=== PATIENT | female | born 1990 | race Caucasian/White ===

== ENCOUNTER 2021-09-20 14:32 | Emergency (ER) | payer MEDICARE, MEDICAID, SELFPAY ==
[2021-09-20 14:41] VITALS: BP 138/83; PULSE 109; RESP 16; TEMP 36.3; O2SAT 98
--- NOTE | 2021-09-20 15:13 | ED.URI ---
HPI - URI/Sore Throat General Chief Complaint: Upper Respiratory Infection Stated Complaint: Sore Throat Time Seen by Provider: 09/20/21 15:13 Source: patient and RN notes reviewed Mode of arrival: ambulatory Limitations: no limitations History of Present Illness HPI Narrative: 31-year-old female presented for complaint of sore throat worsening over the past few days. States is causing her to have a hoarse voice. She states her son is positive for strep throat. She denies nausea, headache, fever or chills. Has not taken anything for symptoms. MD elicited complaint: cough Related Data Home Medications Medication Instructions Recorded Confirmed sertraline 100 mg PO DAILY 09/20/21 09/20/21 Allergies Allergy/AdvReac Type Severity Reaction Status Date / Time No Known Allergies Allergy Unverified 06/16/13 11:21 Review of Systems Review of Systems: CONSTITUTIONAL: Denies malaise, chills, sweats, fever EYES: Denies visual changes, redness, or discharge ENT: Reports sore throat denies rhinorrhea, congestion, sinus pain, otalgia, CARDIOVASCULAR: Denies chest pain, palpitations, edema RESPIRATORY: Denies cough, post nasal drainage, dyspnea GASTROINTESTINAL: Denies abdominal pain, nausea, vomiting, diarrhea SKIN: Denies rash or itching MUSCULOSKELETAL: Denies myalgia NEUROLOGIC: Denies headache Exam Narrative: GENERAL: Ill-appearing, nontoxic HEAD: Normocephalic EYES: PERRLA, conjunctivae clear ENT: Mucous membranes moist. TM pearly dewey with dull light reflex bilaterally, bilateral canals erythematous; no tragal tenderness. Oropharynx erythematous with exudate, tonsils 2+, no drooling, no hoarseness, no trismus, uvula midline. No tripod positioning, muffled voice, soft palate or pharyngeal wall bulging NECK: Supple. No lymphadenopathy CHEST: Clear to auscultation, breath sounds equal. No wheezing, rhonchi, rales, or stridor. No respiratory distress, speaks in full sentences. HEART: Regular rate and rhythm. No murmur heard. SKIN: Warm, dry, no rash. NEURO: Alert and oriented x3. PSYCH: Normal mood and affect Course Course Emergency Course: Patient is aware of diagnosis, understands and agrees to treatment plan. Anticipatory guidance given. Patient agrees to follow-up as directed and is aware of reasons to seek care at the emergency department. Portions of this record may have been created with voice recognition software Level of Care: Express Care Visit Vital Signs Vital signs: Vital Signs Temperature 97.3 F L 09/20/21 14:41 Pulse Rate 109 H 09/20/21 14:41 Respiratory Rate 16 09/20/21 14:41 Blood Pressure 138/83 09/20/21 14:41 Pulse Oximetry 98 09/20/21 14:41 Temperature 97.3 F L 09/20/21 14:41 Pulse Rate 109 H 09/20/21 14:41 Respiratory Rate 16 09/20/21 14:41 Blood Pressure 138/83 09/20/21 14:41 Pulse Oximetry 98 09/20/21 14:41 reviewed MDM - URI/Sore Throat Differential Diagnosis Differential diagnosis: Likely upper respiratory infection, sinusitis and viral infection Lab Data Attestation: I reviewed the patient's lab results. Lab results narrative: Strep positive Discharge Plan Discharge Clinical Impression: Strep pharyngitis Patient Disposition: Home, Self-Care Condition: Stable Instructions: Antibiotic Form, Strep Throat (ED) Additional Instructions: -Take the medication as prescribed. Throw away the toothbrush after 24hours of antibiotic. -Eat and drink things that are easy to swallow, like soft foods, cool liquids, tea with honey, or popsicles . -Salt water gargles and/or may use topical anesthetic ( Chloraseptic spray) or lozenges to relieve dryness or throat pain -Take Tylenol and ibuprofen as needed for pain and fever as directed. -Frequent hand washing or hand sergeant at arms is one of the best ways to prevent spread of infection. -Follow up with primary care provider in 2-3 days if condition is not improving; or seek ER visit if you have trouble br
== END 2021-09-20 15:25 | disposition home or self-care (01) ==
PROVIDERS: Emergency Provider Nurse Practitioner Family; PCP Nurse Practitioner Family
DX: J02.0 Streptococcal pharyngitis (principal)
CPT/HCPCS: 87880; 99203; G0463

== ENCOUNTER 2022-08-23 09:39 | Emergency (ER) | payer MEDICARE, MEDICAID, SELFPAY ==
[2022-08-23 09:47] VITALS: BP 143/86; PULSE 112; RESP 18; TEMP 35.9; O2SAT 99
--- NOTE | 2022-08-23 10:12 | ED.URI ---
HPI - URI/Sore Throat General Chief Complaint: Upper Respiratory Infection Stated Complaint: Sore Throat Time Seen by Provider: 08/23/22 10:10 Source: patient, RN notes reviewed and old records reviewed Mode of arrival: ambulatory Limitations: no limitations History of Present Illness HPI Narrative: 31-year-old female who presents to [facility] with complaints of sore throat for the past 3 days and some ear pressure. Patient states that she has some cough and sinus congestion 'cold' symptoms she reports for one week. Patient reports no fevers, chills or sweats, has taken some Tylenol for her discomfort which she rates as 6/10 sharp to her throat.Patient reports that son was diagnosed recently with strep throat. MD elicited complaint: cough, sore throat, rhinorrhea, nasal congestion and other (right ear pain) Onset (ago): day(s) (3 days sore throat, 1 week cold symptoms) Pain scale (0-10): 6 Able to tolerate fluids by mouth: Yes Treatments prior to arrival: acetaminophen Related Data Home Medications Medication Instructions Recorded Confirmed pregabalin 150 mg capsule 150 mg PO DAILY 09/20/21 08/23/22 sertraline 100 mg tablet 100 mg PO DAILY 09/20/21 08/23/22 atorvastatin 20 mg tablet 20 mg PO DAILY 08/23/22 08/23/22 insulin lispro 100 unit/mL 1 sliding scale dose subcut TID 08/23/22 08/23/22 subcutaneous pen (Humalog KwikPen (U-100) Insulin) Allergies Allergy/AdvReac Type Severity Reaction Status Date / Time No Known Allergies Allergy Verified 08/23/22 10:06 Review of Systems Review of Systems: CONSTITUTIONAL: Denies malaise, chills, sweats, or fever. EYES: Denies visual changes, redness, or discharge. ENT: Reports rhinorrhea, congestion,no sinus pain,right otalgia and sore throat. CARDIOVASCULAR: Denies chest pain, palpitations, or edema. RESPIRATORY: Reports cough.? Denies dyspnea. GASTROINTESTINAL: Denies abdominal pain, nausea, vomiting, diarrhea SKIN: Denies rash or itching. MUSCULOSKELETAL: Denies myalgia. NEUROLOGIC: Denies headache. All systems reviewed & are unremarkable except as noted in HPI and below PMFSH Comments At time of signature, agree with nursing past medical, surgical, social and family history. There is no relevant family history pertinent to the presenting complaint Exam Narrative: GENERAL: Well-appearing, well-nourished, and in no acute distress. HEAD: Normocephalic EYES: PERRLA, conjunctivae clear ENT: Nares clear, turbinates edematous and erythematous, clear discharge. Mucous membranes moist. TM pearly dewey with dull light reflex bilaterally; no tragal tenderness. Oropharynx erythematous without lesions. Tonsils red enlarged and without exudate, no drooling, no hoarseness, no trismus, uvula midline.post nasal drainage NECK: Supple. No lymphadenopathy CHEST: Clear to auscultation, breath sounds equal. No wheezing, rhonchi, rales, or stridor. No respiratory distress, speaks in full sentences.SAO2 99% on room air HEART: Regular rate and rhythm. No murmur heard. SKIN: Warm, dry, no rash. NEURO: Alert and oriented x3. PSYCH: Normal mood and affect Course Course Emergency Course: Patient is aware of diagnosis, understands and agrees to treatment plan.? Anticipatory guidance given.? Patient agrees to follow-up as directed and is aware of reasons to seek care at the emergency department. Portions of this record may have been created with voice recognition software Level of Care: Express Care Visit Vital Signs Vital signs: Vital Signs Temperature 35.9 C L 08/23/22 09:47 Pulse Rate 112 H 08/23/22 09:47 Respiratory Rate 18 08/23/22 09:47 Blood Pressure 143/86 H 08/23/22 09:47 Pulse Oximetry 99 08/23/22 09:47 Oxygen Delivery Room Air 08/23/22 09:47 Temperature 35.9 C L 08/23/22 09:47 Pulse Rate 112 H 08/23/22 09:47 Respiratory Rate 18 08/23/22 09:47 Blood Pressure 143/86 H 08/23/22 09:47 Pulse Oximetry 99 08/23/22 09:
== END 2022-08-23 10:28 | disposition home or self-care (01) ==
PROVIDERS: Emergency Provider Registered Nurse; PCP Nurse Practitioner Family
DX: J02.0 Streptococcal pharyngitis (principal)
CPT/HCPCS: 87880; 99213; G0463

== ENCOUNTER 2023-04-16 12:52 | Emergency (ER) | payer MEDICARE, MEDICAID, SELFPAY ==
[2023-04-16 12:58] VITALS: BP 125/82; PULSE 100; RESP 18; TEMP 36.3; O2SAT 100
--- NOTE | 2023-04-16 13:04 | ED.URI ---
HPI - URI/Sore Throat General Chief Complaint: Upper Respiratory Infection Stated Complaint: Right Earache, Sore Throat Source: patient and RN notes reviewed History of Present Illness HPI Narrative: 32 yo F presents to urgent care with complaints of a sore throat and right ear pain x 2 days. Pt states she had a low grade fever yesterday. Denies any chest pain, SOB, N/V/D, or congestion. Related Data Home Medications Medication Instructions Recorded Confirmed pregabalin 150 mg capsule 150 mg PO DAILY 09/20/21 04/16/23 atorvastatin 20 mg tablet 20 mg PO DAILY 08/23/22 04/16/23 insulin lispro 100 unit/mL 1 sliding scale dose subcut TID 08/23/22 04/16/23 subcutaneous pen (Humalog KwikPen (U-100) Insulin) Allergies Allergy/AdvReac Type Severity Reaction Status Date / Time cyclobenzaprine Allergy Unknown Verified 04/16/23 13:14 [From Flexeril] Review of Systems Review of Systems: CONSTITUTIONAL: Denies fever, chills, or sweats. EYES: Denies visual changes, redness, or discharge. CARDIOVASCULAR: Denies chest pain, palpitations, or edema. RESPIRATORY: Denies cough or dyspnea. GASTROINTESTINAL: Denies abdominal pain, nausea, vomiting, or diarrhea. GENITOURINARY: Denies dysuria or hematuria. SKIN: Denies rash or itching. MUSCULOSKELETAL: Denies back pain, joint pain, or myalgia. NEUROLOGIC: Denies headache, numbness, or weakness. Pertinent positives per HPI. PMFSH Comments At the time of my signature, I reviewed and agree with the nursing past medical, surgical, social, and family history. There is no relevant family history pertinent to the patient complaint. Exam Narrative: GENERAL: This is a well-nourished, well-developed patient, in no apparent distress. HEAD: normocephalic, atraumatic. EYES: Sclera clear/white. Vision is grossly intact. EARS: External ears normal, auditory canals clear and without drainage, TMs normal without perforation. Hearing grossly intact. NOSE: External nose normal with no obvious nasal discharge, nares without redness, no rhinorrhea. THROAT: Mucous membranes moist, posterior pharynx erythremic. no exudate. uvula midline. NECK: Neck supple, non-tender without lymphadenopathy, masses or thyromegaly. CARDIOVASCULAR: Regular rate and rhythm without murmurs, gallops, or rubs. RESPIRATORY: Clear to auscultation. Breath sounds equal bilaterally. No wheezes, rales, or rhonchi. NEURO: awake, alert, and oriented to person, place and time. There were no obvious focal neurologic abnormalities. Course Course Level of Care: Express Care Visit Vital Signs Vital signs: Vital Signs Temperature 97.3 F L 04/16/23 12:58 Pulse Rate 100 04/16/23 12:58 Respiratory Rate 18 04/16/23 12:58 Blood Pressure 125/82 04/16/23 12:58 Pulse Oximetry 100 04/16/23 12:58 Oxygen Delivery Room Air 04/16/23 12:58 Temperature 97.3 F L 04/16/23 12:58 Pulse Rate 100 04/16/23 12:58 Respiratory Rate 18 04/16/23 12:58 Blood Pressure 125/82 04/16/23 12:58 Pulse Oximetry 100 04/16/23 12:58 Oxygen Delivery Room Air 04/16/23 12:58 Reviewed MDM - URI/Sore Throat MDM Narrative Medical decision making narrative: Rapid strep is negative in the office; however we will send to the lab for confirmation; there is a small percentage chance that it can come back positive; if it is, we will call you in 2-3days; and your prescription will be call in to your pharmacy. However, there is NO indication for antibiotic at this time. -Increase your fluids and Vitamin C. -Oral rinses such as: Salt water gargles and/or may use topical anesthetic (eg. Chloraseptic spray) or lozenges to relieve dryness or throat pain. -Take tylenol and ibuprofen as needed for pain and fever as directed. -Frequent hand washing or hand puttier is one of the best ways to prevent spread of infection. -Follow up with primary care provider in 2-3 days if condition is not improving or seek ER visit if you
== END 2023-04-16 13:25 | disposition home or self-care (01) ==
PROVIDERS: Emergency Provider Nurse Practitioner Family; PCP Nurse Practitioner Family
DX: J02.9 Acute pharyngitis, unspecified (principal); E11.40 Type 2 diabetes mellitus with diabetic neuropathy, unspecified; Z79.4 Long term (current) use of insulin
CPT/HCPCS: 87081; 87880; 99213; G0463

== ENCOUNTER 2023-04-22 17:18 | Emergency (ER) | payer MEDICARE, MEDICAID, SELFPAY ==
[2023-04-22 17:37] VITALS: BP 138/93; PULSE 112; RESP 18; TEMP 36.2; O2SAT 97
--- NOTE | 2023-04-22 18:14 | ED.URI ---
HPI - URI/Sore Throat General Chief Complaint: Upper Respiratory Infection Stated Complaint: Headache/Sore Throat/Fever Source: patient, family and RN notes reviewed History of Present Illness HPI Narrative: 32 yo F presents to urgent care with complaints of worsening congestion, ear fullness, and sore throat x 8 days. Pt reports tinnitus in her ears, dizziness with walking and position changes, and states she has vomited a couple times when she got dizzy. Pt also states she first noticed a fever today. Denies any diarrhea, chest pain, SOB, or abdominal pain. Denies any falls. Pt has been taking ibuprofen and Tylenol at home with no relief. Related Data Home Medications Medication Instructions Recorded Confirmed pregabalin 150 mg capsule 150 mg PO DAILY 09/20/21 04/16/23 atorvastatin 20 mg tablet 20 mg PO DAILY 08/23/22 04/16/23 insulin lispro 100 unit/mL 1 sliding scale dose subcut TID 08/23/22 04/16/23 subcutaneous pen (Humalog KwikPen (U-100) Insulin) Allergies Allergy/AdvReac Type Severity Reaction Status Date / Time cyclobenzaprine Allergy Unknown Verified 04/16/23 13:14 [From Flexeril] Review of Systems Review of Systems: Pertinent positives and pertinent negatives per HPI. [facility] Comments At the time of my signature, I reviewed and agree with the nursing past medical, surgical, social, and family history. There is no relevant family history pertinent to the patient complaint. Exam Narrative: GENERAL: This is a well-nourished, well-developed patient, in no apparent distress. HEAD: normocephalic, atraumatic. EYES: Sclera clear/white. Vision is grossly intact. EARS: External ears normal, auditory canals clear and without drainage, TMs noted to have clear fluid behind the TMs,without perforation. Hearing grossly intact. NOSE: External nose normal with no obvious nasal discharge, nares without redness, no rhinorrhea. THROAT: Mucous membranes moist, posterior pharynx clear. NECK: Neck supple, non-tender without lymphadenopathy, masses or thyromegaly. CARDIOVASCULAR: Regular rate and rhythm without murmurs, gallops, or rubs. RESPIRATORY: Clear to auscultation. Breath sounds equal bilaterally. No wheezes, rales, or rhonchi. SKIN: warm, intact with no suspicious lesions or rash, good texture and turgor. NEURO: awake, alert, and oriented to person, place and time. There were no obvious focal neurologic abnormalities. Course Course Level of Care: Express Care Visit Vital Signs Vital signs: Vital Signs Temperature 97.1 F L 04/22/23 17:37 Pulse Rate 112 H 04/22/23 17:37 Respiratory Rate 18 04/22/23 17:37 Blood Pressure 138/93 H 04/22/23 17:37 Pulse Oximetry 97 04/22/23 17:37 Oxygen Delivery Room Air 04/22/23 17:37 Temperature 97.1 F L 04/22/23 17:37 Pulse Rate 112 H 04/22/23 17:37 Respiratory Rate 18 04/22/23 17:37 Blood Pressure 138/93 H 04/22/23 17:37 Pulse Oximetry 97 04/22/23 17:37 Oxygen Delivery Room Air 04/22/23 17:37 Reviewed MDM - URI/Sore Throat MDM Narrative Medical decision making narrative: Go to the ER for any new or worsening symptoms. Avoid smoking/second-hand smoke. Continue to take Tylenol or Motrin for pain. Increase your Vitamin C intake. Use a humidifier or vaporizer at night. Take a probiotic daily while taking the antibiotic Take Medications as prescribed. Drink plenty of water. 8-10 glasses per day. Use flonase 2 times per day for 5 days then as needed Take mucinex 2 times per day and be sure to take with 8oz of water. Follow up with Primary provider if not getting better. Differential Diagnosis Differential diagnosis: Likely upper respiratory infection, otitis media, sinusitis, viral infection, bronchitis, influenza, pharyngitis and other (vertigo) Lab Data Labs: Strep Screen Presumptive Negative *(Reference Range: Negative)* Critical Care Time Cr
== END 2023-04-22 18:20 | disposition home or self-care (01) ==
PROVIDERS: Emergency Provider Nurse Practitioner Family; PCP Nurse Practitioner Family
DX: R42 Dizziness and giddiness (principal); J32.9 Chronic sinusitis, unspecified; E11.9 Type 2 diabetes mellitus without complications; Z79.4 Long term (current) use of insulin; G62.9 Polyneuropathy, unspecified
CPT/HCPCS: 87081; 87880; 99213; G0463

== ENCOUNTER 2023-08-09 10:45 | Emergency (ER) | payer MEDICARE, MEDICAID, SELFPAY ==
[2023-08-09 10:57] VITALS: BP 128/78; PULSE 110; RESP 16; TEMP 36.7; O2SAT 98
--- NOTE | 2023-08-09 11:33 | ED.EAR ---
HPI - Ear Problem General Chief complaint: Ear Stated complaint: Left ear pain Time Seen by Provider: 08/09/23 11:24 Source: patient and RN notes reviewed Mode of arrival: ambulatory Limitations: no limitations History of Present Illness HPI Narrative: Patient presents today with left ear pain x1 week. Denies any drainage. She reports fever up to 101.7 yesterday. Denies any additional URI symptoms to include congestion, rhinorrhea, cough, sore throat. Currently rates her pain 6/10 and has been taking Tylenol with mild relief. Related Data Home Medications Medication Instructions Recorded Confirmed pregabalin 150 mg capsule 150 mg PO DAILY 09/20/21 04/22/23 atorvastatin 20 mg tablet 20 mg PO DAILY 08/23/22 04/22/23 insulin lispro 100 unit/mL 1 sliding scale dose subcut TID 08/23/22 04/22/23 subcutaneous pen (Humalog KwikPen (U-100) Insulin) duloxetine 30 mg capsule,delayed mg PO 08/09/23 release Allergies Allergy/AdvReac Type Severity Reaction Status Date / Time cyclobenzaprine Allergy Unknown Verified 04/16/23 13:14 [From Flexeril] Review of Systems Review of Systems: CONSTITUTIONAL: Denies body aches, chills, or sweats.+ fever EYES: Denies visual changes, redness, or discharge. ENT: Denies rhinorrhea, congestion, sore throat. + left ear pain CARDIOVASCULAR: Denies chest pain, palpitations, or edema. RESPIRATORY: Denies cough or dyspnea. GASTROINTESTINAL: Denies abdominal pain, nausea, vomiting, or diarrhea. GENITOURINARY: Denies dysuria or hematuria. SKIN: Denies rash, itching, or wounds. MUSCULOSKELETAL: Denies back pain, joint pain, or myalgia. NEUROLOGIC: Denies headache, numbness, tingling, or weakness. PSYCH: Denies depression or anxiety. PMFSH Comments At time of signature, I have reviewed and agree with nursing past medical, surgical, social and family history unless otherwise noted. Please see nursing chart for further information. There is no relevant family history pertinent to the presenting complaint Exam Narrative: GENERAL: Well-appearing, well-nourished, and in no acute distress. HEAD: Normocephalic, atraumatic. EYES: EOMI. No redness or drainage. Conjunctivae normal. ENT: Mucous membranes pink and moist. Nares clear. No rhinorrhea. Right TM and canal normal. Left ear:+ tragal tenderness. No movement tenderness. Ear canal is erythematous and mildly edematous. The TM is injected. No tenderness to the mastoid process. Throat normal. Uvula midline. NECK: Normal AROM. Supple. No lymphadenopathy. CHEST: No respiratory distress. EXTREMITIES: Normal range of motion. No edema. SKIN: Warm, dry. Capillary refill normal. Normal skin turgor. NEURO: No focal deficits. Alert and oriented x3. Gait steady. PSYCH: Normal affect. No signs of depression or anxiety. Course Course Level of Care: Express Care Visit Vital Signs Vital signs: Vital Signs Temperature 98.1 F 08/09/23 10:57 Pulse Rate 110 H 08/09/23 10:57 Respiratory Rate 16 08/09/23 10:57 Blood Pressure 128/78 08/09/23 10:57 Pulse Oximetry 98 08/09/23 10:57 Oxygen Delivery Room Air 08/09/23 10:57 Temperature 98.1 F 08/09/23 10:57 Pulse Rate 110 H 08/09/23 10:57 Respiratory Rate 16 08/09/23 10:57 Blood Pressure 128/78 08/09/23 10:57 Pulse Oximetry 98 08/09/23 10:57 Oxygen Delivery Room Air 08/09/23 10:57 Reviewed Medical Decision Making MDM Narrative Medical decision making narrative: Patient will be treated with both Augmentin and Ciprodex for presumed otitis externa and otitis media. Anticipatory guidance given. Differential Diagnosis Differential Diagnosis: Otitis media, otitis externa, ruptured TM, serous otitis, eustachian tube dysfunction, cerumen impaction Vital Signs Vital Signs: Vital Signs Temperature 98.1 F 08/09/23 10:57 Pulse Rate 110 H 08/09/23 10:57 Respiratory Rate 16 08/09/23 10:57 Blood Pressure 128/78 08/09/23 1
== END 2023-08-09 11:43 | disposition home or self-care (01) ==
PROVIDERS: Emergency Provider Nurse Practitioner; PCP Nurse Practitioner Family
DX: H66.92 Otitis media, unspecified, left ear (principal); H60.502 Unspecified acute noninfective otitis externa, left ear; E11.9 Type 2 diabetes mellitus without complications
CPT/HCPCS: 99213; G0463

== ENCOUNTER 2025-06-01 11:02 | Emergency (ER) | payer MEDICARE, MEDICAID, SELFPAY ==
--- OUTSIDE RECORDS SUMMARY | 2025-06-01 11:04 | XMS_ITS | Clinical Summary ---
Author Organization [facility] Address [address], [place] [address] Phone Care Team Providers Care Application Project Leader Name Role Phone Devon, Kalyn TOVAR CNP Primary Care Provider [phone] Arvind Ovalle MD Unavailable [phone] Allergies Active Allergy Reactions Criticality Noted Date Comments Cyclobenzaprine Anaphylaxis 06/21/2015 Tongue swelling Medications insulin lispro (HumaLOG) 100 UNIT/ML Solution by Subcutaneous route 3 times daily (after meals). Use as directed Active Cholecalcifero l (VITAMIN D PO) Take by mouth. Activ e Ibuprofen 200 MG Capsule Take by mouth. Acti ve Misc. Devices Misc Supply: AFO Orthotics Expected length of need: 99 Instructions: Wear when ambulating to reduce risk of falls. 1 Each 9 Active Additional Information Patient not taking.Reported on 05/03/2025 albuterol 108 (90 Base) MCG/ACT Aerosol Solution INHALE 2 PUFFS BY MOUTH EVERY 4 HOURS NEEDED 1 Active Glucagon, rDNA, (Glucagon Emergency) 1 MG Kit 1 Active DULoxetine (CYMBALTA) [address] Particles Take 30 mg by mouth daily. Active FLUTICASONE PROPIONATE, NASAL, NA 50 mcg by Nasal route daily. 1 spray daily Active Norethindrone, Contraceptive, (Meleya) 0.35 MG TabletIndicati ons:Contracept yessenia Therapy Take 1 Tablet by mouth daily. Indications: Control Treatment Active pregabalin (LYRICA) 150 MG CapsuleIndicat ions:Lumbosacr al plexopathy Take 1 Capsule by mouth 2 times daily. 180 Capsule Active pregabalin (LYRICA) 150 MG CapsuleIndicat ions:Lumbosacr al plexopathy Take 1 Capsule by mouth 2 times daily. 180 Capsule 2 5 025 Discontin ued(Reord er) Active Problems Problem Noted Date Diagnosed Date Morbid obesity 03/28/2025 Diabetic ketoacidosis withou t coma associated with type 1 diabetes mellitus 03/27/2025 Acute kidney injury 03/27/2025 Dehydration 03/27/2025 Hypomagnesemia 03/27/2025 Diabetic polyneuropathy asso ciated with type 1 diabetes mellitus 03/27/2025 Diabetic lumbosacral plexopathy 01/16/2025 Encounters Date Type Department Care Team Description 05/03/2025 Refill [facility] [address] [place] [address] Arvind Ovalle MD Medication Refill 03/27/2025 5:06 PM CDT - 03/28/2025 4:45 PM CDT Hospital Encounter [facility] Intensive Care [address] [place] [address] Nato Ceron MD Dianati, Behfar, MD Diabetic ketoacidosis without coma associated with type 1 diabetes mellitus Discharge Disposition: Discharged to home or Selfcare 03/27/2025 Travel from Last 3 Months Family History Medical History Relation Name Comments Hypertension Mother Relation Name Status Comments Father Alive Mother Alive Social History Tobacco Use Types Packs/Day Years Used Date Smoking Tobacco: Never Smokeless Tobacco: Never Tobacco Cessation:Counseling Given: Not Answered Alcohol Use Standard Drinks/Week Comments Yes 0 (1 standard drink = 0.6 oz pur e alcohol) Social Connection and Isolation Panel Answer Date Recorded In a typical week, how many times do you talk on the phone with family, friends, or neighbors? More than three times a week 03/27/2025 How often do you get togethe r with friends or relatives? More than three times a week 03/27/2025 How often do you attend chur ch or sikhism services? Never 03/27/2025 Do you belong to any clubs o r organizations such as pentecostal groups, unions, fraternal or athletic groups, or school groups? No 03/27/2025 How often do you attend meet ings of the clubs or organizations you belong to? Never 03/27/2025 Are you , , di vorced, , never , or living with a partner? Never 03/27/2025 AUDIT-C Answer Date Recorded Q1: How often do you have a drink containing alc ohol? Monthly or less 03/27/2025 Q2: How many drinks containi ng alcohol do you have on a typical day when you are drinking? 1 or 2 03/27/2025 Q3: How often do you have si x or more drinks on one occasion? Never 03/27/2025 Overall Financial Resource Strain (CARDIA) Answe r Date Recorded How hard is it for you to pa y for the very basics like food, housing, medical care, and heating? Not hard at all 03/27/2025 [facility] - Occupational Stress Questionnaire Answer Date Recorded Do you feel stress - tense, restless, nervous, or anxious, or unable to sleep at night because your mind is troubled all the time - these days? Rather much 03/27/2025 Exercise Vital Sign Answer Date Recorde d On average, how many days pe r week do you engage in moderate to strenuous exercise (like a brisk walk)? 3 days 03/27/2025 On average, how many minutes do you engage in exercise at this level? 30 min 03/27/2025 Hunger Vital Sign Answer Date Recorded Within the past 12 months, y ou worried that your food would run out before you got the money to buy more. Never true 03/27/20 25 Within the past 12 months, t he food you bought just didn't last and you didn't have money to get more. Never true 03/27/2025 PRAPARE - Transportation Answer Date Re corded In the past 12 months, has l ack of transportation kept you from medical appointments or from getting medications? No 03/08 In the past 12 months, has l ack of transportation kept you from meetings, work, or from getting things needed for daily living? No 03/27/2025 Housing Stability Vital Sign Answer Olaf e Recorded In the last 12 months, was t here a time when you were not able to pay the mortgage or rent on time? No 03/27/2025 In the past 12 months, how m any times have you moved where you were living? 0 03/27/2025 At any time in the past 12 m [facility], were you homeless or living in a long term (including now)? No 03/27/2025 [facility] Utilities Answer Date Recorded In the past 12 months has th e electric, gas, oil, or water company threatened to shut off services in your home? No 03/27/2025 Comments No Sex and Gender Information Value Date Recorded Sex Assigned at Not on file Legal Sex Female 11:05 PM CDT Gender Identity Not on file Sexual Orientation Not on file Last Filed Vital Signs Vital Sign Reading Time Taken Comments Blood Pressure 147/73 03/28/2025 4:00 PM CDT Pulse 113 03/28/2025 4:00 PM CDT Temperature 36.7 C (98 F) 03/28/2025 3:00 AM CDT Respiratory Rate 24 03/28/2025 4:00 PM CDT Oxygen Saturation 97% 03/28/2025 4:00 PM CDT Inhaled Oxygen Concentration - - Weight 142 kg (313 lb) 03/27/2025 5:12 PM CDT Height 165.1 cm (5' 5) 03/27/2025 5:12 PM CDT Body Mass Index 52.09 03/27/2025 5:12 PM CDT Plan of Treatment Upcoming Encounters Date Type Department Care Team (Late st Contact Info) Description 07/23/2025 9:30 AM CUSTOMER EXPERIENCE ANALYST Office Visit [facility] Neurology [facility] [address] [place] [id number] Arvind Ovalle MD [address] [place] [address] Health Maintenance Due Date Last Done Comments Diabetes: Eye Exam 1992 Diabetes: Foot Exam 1992 Hepatitis C Virus (HCV) Screening 1992 Varicella Immunization (1 of 2 - 13+ 2-dose series) 2005 Pneumococcal Immunization Combined (1 of 2 - PCV) 09/11/2011 Pap Smear 2013 Medicare Initial AWV G0438 01/28/2022 Cervical Cancer Screening (CCS) 2022 HPV/Cotest 2022 Influenza Immunization (#1) 2025 SARS-COV-2 Immunization ( season) 2025 Diabetes: Hemoglobin A1c 09/25/2025 025, 10/11/2024, 03/17/2024, Additional history exists Diabetes: Nephropathy Screening 03/27/2026 03/27/2025, 10/11/2017 Hepatitis B Immunization Completed 994, 1992, 1992 DTaP/Tdap/Td Immunization Discontinued 2023, 11/26/2022, 08/16/2018, Additional history exists TdaP Immunization Completed 02/21/2024, , 08/16/2018, Additional history exists Respiratory Syncytial Virus (RSV) Immunization (Adult) Completed 03/21/2024 Human Papillomavirus (HPV) Immunization (No Doses Required) Completed Meningococcal Immunization (ACWY) Aged Out No longer eligible based on patient's age to complete this topic Rotavirus Immunization Aged Out No lo nger eligible based on patient's age to complete this topic Procedures Procedure Name Priority Date/Time Associated Diagnosis Comments PRESTON SCREEN MULTIPLEX W/REFLEX DENIA Routine 03/28/2025 3:40 PM CDT POCT GLUCOSE Routine 03/28/2025 3:33 PM CDT BASIC METABOLIC PANEL W/ CALCIUM TOTAL Timed 03/28/2025 1:10 PM CDT POCT GLUCOSE Routine 03/28/2025 12:20 PM CDT POCT GLUCOSE Routine 03/28/2025 10:20 AM CDT THYROID STIMULATING HORMONE (TSH) Routine 03/28/2025 8:45 AM CDT BASIC METABOLIC PANEL W/ CALCIUM TOTAL Timed 03/28/2025 8:45 AM CDT POCT GLUCOSE Routine 03/28/2025 8:43 AM CDT POCT GLUCOSE Routine 03/28/2025 7:18 AM CDT POCT GLUCOSE Routine 03/28/2025 5:58 AM CDT CBC WITH AUTO DIFFERENTIAL STAT 03/28/2025 5:18 AM CDT BASIC METABOLIC PANEL W/ CALCIUM TOTAL Timed 03/28/2025 5:18 AM CDT COMPLETE BLOOD COUNT (CBC) WITH DIFF STAT 03/28/2025 5:18 AM CDT PHOSPHORUS (PO4) STAT 03/28/2025 5:18 AM CDT MAGNESIUM (MG) STAT 03/28/2025 5:18 AM CDT POCT GLUCOSE Routine 03/28/2025 5:00 AM CDT POCT GLUCOSE Routine 03/28/2025 4:04 AM CDT POCT GLUCOSE Routine 03/28/2025 3:03 AM CDT POCT GLUCOSE Routine 03/28/2025 2:06 AM CDT BASIC METABOLIC PANEL W/ CALCIUM TOTAL Timed 03/28/2025 1:31 AM CDT POCT GLUCOSE Routine 03/28/2025 1:01 AM CDT POCT GLUCOSE Routine 03/28/2025 12:02 AM CDT RHYTHM STRIP 03/28/2025 12:00 AM CDT RHYTHM STRIP 03/28/2025 12:00 AM CDT RHYTHM STRIP 03/28/2025 12:00 AM CDT POCT GLUCOSE Routine 03/27/2025 11:02 PM CDT MRSA NASAL PCR Routine 03/27/2025 10:46 PM CDT MRSA NASAL BY PCR Routine 03/27/2025 10: 46 PM CDT POCT GLUCOSE STAT 03/27/2025 9:47 PM CDT POCT GLUCOSE STAT 03/27/2025 8:54 PM CDT POCT GLUCOSE STAT 03/27/2025 7:52 PM CDT POCT GLUCOSE STAT 03/27/2025 7:02 PM CDT POCT GLUCOSE STAT 03/27/2025 6:22 PM CDT URINALYSIS REFLEX IF INDICATED BY ABNORMAL RESULTS STAT 03/27/2025 5:43 PM CDT POCT URINE HCG () STAT 03/27/2025 5:37 PM CDT CBC WITH AUTO DIFFERENTIAL STAT 03/27/2025 5:32 PM CDT HEMOGLOBIN A1C W/ ESTIMATED GLUCOSE STAT 03/27/2025 5:32 PM CDT TEST FOR ACETONE/KETONES STAT 03/27/2025 5:32 PM CDT PHOSPHORUS (PO4) STAT 03/27/2025 5:32 PM CDT MAGNESIUM (MG) STAT 03/27/2025 5:32 PM CDT CMP (COMPREHENSIVE METABOLIC PANEL) STAT 03/27/2025 5:32 PM CDT COMPLETE BLOOD COUNT (CBC) WITH DIFF STAT 03/27/2025 5:32 PM CDT BLOOD GASES, VENOUS W/ O2 SATURATION STAT 03/27/2025 5:30 PM CDT EKG 12 LEAD STAT 03/27/2025 5:19 PM CDT POCT GLUCOSE STAT 03/27/2025 5:05 PM CDT RHYTHM STRIP 03/27/2025 12:00 AM CDT EKG SCAN 03/27/2025 12:00 AM CDT from Last 3 Months Results * PRESTON SCREEN MULTIPLEX W/REFLEX DENIA (03/28/2025 3:40 PM CDT) PRESTON SCR MULTIPLEX Negative Negative, See comment 03/28/2025 10:41 PM CDT [facility] Blood Venipuncture / Unknown 03/28/2025 3:40 PM CDT 03/28/2025 3:44 PM CDT Narrative [facility] - 03/28/2025 10:41 PM CDT Antibody testing was performed by multiplex flow immunoassay on the App[employer] platform. us Ken Cintron MD IMMUNOLOGY ORDERABLES Final Re sult [facility] [address] [id number], [place] * (ABNORMAL) POCT Glucose (03/28/2025 3:33 PM CDT) Only the most recent of19 resultswithin the time period is included. GLUCOSE,BEDSID E POCT 239(H) 70 - 99 mg/dL 03/28/2025 3:34 PM CDT [facility] Blood 03/28/2025 3:33 PM CDT 03/28/2025 3:34 PM CDT us None Provider POINT OF CARE TESTING Final Resu lt [facility] [address] [place] [address] * (ABNORMAL) BMP with Ca, Total - every 4 hours x 48 Hours (03/28/2025 1:10 PM CDT) Only the most recent of4 resultswithin the time period is included. SODIUM 137 136 - 145 mmol/L 03/28/2025 1:27 PM CDT [facility] POTASSIUM 3.9 3.5 - 5.1 mmol/L 03/28/2025 1:27 PM CDT [facility] CHLORIDE 111(H) 98 - 107 mmol/L 03/28/2025 1:27 PM CDT [facility] CO2, VENOUS 15(L) 22 - 30 mmol/L 03/28/2025 1:27 PM CDT [facility] ANION GAP 14.9 <18.0 mmol/L 03/28/2025 1:27 PM CDT [facility] GLUCOSE 191(H) 70 - 99 mg/dL 03/28/2025 1:27 PM CDT [facility] BUN 5 5 - 18 mg/dL 03/28/2025 1:27 PM CDT [facility] CREATININE, BLOOD 0.73 0.60 - 1.00 mg/dL 03/28/2025 1:27 PM CDT [facility] BUN/CREATININE RATIO 7(L) 12 - 20 ratio 03/28/2025 1:27 PM CDT [facility] CALCIUM 8.2(L) 8.7 - 10.5 mg/dL 03/28/2025 1:27 PM CDT [facility] GFR, ESTIMATED >60 >=60 03/28/2025 1:27 PM CDT [facility] Comment: Creatinine Clearance is the preferred criteria for selecting drug dose adjustments in renally impaired patients. The GFR is provided as additional pertinent clinical information. GFR is reported in mL/min/1.73 sq m. Calculation based on the 2020 Chronic Kidney Disease Epidemiology Collaboration (CKD-EPI) equation refit without adjustment for race. GFR, EST. >60 >=60 1:27 PM CDT [facility] Comment: Creatinine Clearance is the preferred criteria for selecting drug dose adjustments in renally impaired patients. The GFR is provided as additional pertinent clinical information. GFR is reported in mL/min/1.73 sq m. Calculation based on the 2009 Chronic Kidney Disease Epidemiology Collaboration (CKD-EPI). GFR, EST. NONAFRICAN >60 >=60 03/28/2025 1:27 PM CDT [facility] Comment: Creatinine Clearance is the preferred criteria for selecting drug dose adjustments in renally impaired patients. The GFR is provided as additional pertinent clinical information. GFR is reported in mL/min/1.73 sq m. Calculation based on the 2009 Chronic Kidney Disease Epidemiology Collaboration (CKD-EPI). Blood Venipuncture / Unknown 03/28/2025 1:10 PM CDT 03/28/2025 1:10 PM CDT Emperatriz Mcgregor APRN, CNP CHEMISTRY ORDERABLES Final Result Performing Organization Address City/[facility]/ZIP Co de Phone Number [facility] [address] [place] [address] * Thyroid Stimulating Hormone (TSH) (03/28/2025 8:45 AM CDT) TSH 2.424 0.300 - 5.000 mIU/L 03/28/2025 12:28 PM CDT [facility] Blood Venipuncture / Unknown 03/28/2025 8:45 AM CDT 03/28/2025 8:49 AM CDT Ken Cintron MD CHEMISTRY ORDERABLES Final Res ult Performing Organization Address City/[facility]/ZIP Co de Phone Number [facility] [address] [place] [address] * (ABNORMAL) CBC with Auto Differential (03/28/2025 5:18 AM CDT) Only the most recent of2 resultswithin the time period is included. WBC 11.87 4.00 - 12.00 10(3)/mcL 03/28/2025 5:35 AM CDT [facility] RBC 5.47(H) 3.80 - 5.30 10(6)/mcL 03/28/2025 5:35 AM CDT [facility] HEMOGLOBIN (HGB) 14.7 12.0 - 15.8 g/dL 03/28/2025 5:35 AM CDT [facility] HEMATOCRIT (HCT) 45.3 36.0 - 47.0 % 03/28/2025 5:35 AM CDT [facility] MCV 82.8 82.0 - 96.0 fL 03/28/2025 5:35 AM CDT [facility] MCH 26.9 26.0 - 34.0 pg 03/28/2025 5:35 AM CDT [facility] MCHC 32.5 31.0 - 36.0 g/dL 03/28/2025 5:35 AM CDT [facility] PLATELET COUNT 308 140 - 440 10(3)/mcL 03/28/2025 5:35 AM CDT [facility] RDW 14.0 11.8 - 15.5 % 03/28/2025 5:35 AM CDT [facility] MPV 11.5 9.7 - 12.4 fL 03/28/2025 5:35 AM CDT [facility] NEUTROPHILS 69.7 47.0 - 73.0 % 03/28/2025 5:35 AM CDT [facility] LYMPHOCYTES 18.4 18.0 - 42.0 % 03/28/2025 5:35 AM CDT [facility] MONOCYTES 9.8 4.0 - 12.0 % 03/28/2025 5:35 AM CDT [facility] EOSINOPHILS 0.8 0.0 - 5.0 % 03/28/2025 5:35 AM CDT [facility] BASOPHILS 0.8 0.0 - 1.0 % 03/28/2025 5:35 AM CDT [facility] IMMATURE GRANULOCYTE 0.5(H) 0.0 - 0.4 % 03/28/2025 5:35 AM CDT [facility] Comment:Immature Granulocyte s includes Metamyelocytes, Myelocytes, and Promyelocytes. ABSOLUTE NEUTROPHILS 8.28(H) 1.60 - 7.70 10(3)/mcL 03/28/2025 5:35 AM CDT [facility] ABSOLUTE LYMPHOCYTES 2.18 1.30 - 3.20 10(3)/mcL 03/28/2025 5:35 AM CDT [facility] ABSOLUTE MONOCYTES 1.16(H) 0.20 - 1.00 10(3)/mcL 03/28/2025 5:35 AM CDT [facility] ABSOLUTE EOSINOPHIL 0.09 0.00 - 0.40 10(3)/mcL 03/28/2025 5:35 AM CDT [facility] ABSOLUTE BASOPHILS 0.10 0.00 - 0.10 10(3)/mcL 03/28/2025 5:35 AM CDT [facility] ABSOLUTE IMMATURE GRANULOCYTE 0.06(H) 0.00 - 0.03 10 (3) mcL. 03/28/2025 5:35 AM CDT [facility] NRBC PER 100 WBC 0 03/28/20 25 5:35 AM CDT [facility] Blood Venipuncture / Unknown 03/28/2025 5:18 AM CDT 03/28/2025 5:31 AM CDT us Emperatriz Mcgregor SPED TEACHER, INCOME TAX MANAGER HEMATOLOGY ORDERABLES Final Result [facility] [address] [place] [address] * (ABNORMAL) Phosphorus (PO4), Serum (03/28/2025 5:18 AM CDT) Only the most recent of2 resultswithin the time period is included. PHOSPHORUS 1.7(L) 2.5 - 4.5 mg/dL 03/28/2025 6:06 AM CDT [facility] Blood Venipuncture / Unknown 03/28/2025 5:18 AM CDT 03/28/2025 5:31 AM CDT [facility] CHEMISTRY ORDERABLES Final Result Performing Organization Address [facility] de Phone Number [facility] [address] [place] [address] * Magnesium (Mg) (03/28/2025 5:18 AM CDT) Only the most recent of2 resultswithin the time period is included. MAGNESIUM 1.9 1.6 - 2.6 mg/dL 03/28/2025 6:06 AM CDT [facility] Blood Venipuncture / Unknown 03/28/2025 5:18 AM CDT 03/28/2025 5:31 AM CDT Emperatriz Rinconiday SPED TEACHER, [facility] CHEMISTRY ORDERABLES Final Result Performing Organization Address [facility] de Phone Number [facility] [address] [place] [address] * RHYTHM STRIP (03/28/2025 12:00 AM CDT) Only the most recent of4 resultswithin the time period is included. 03/28/2025 Provider Scan IMG ECG ORDERABLES Final Result Performing Organization Address City/[facility] Co de Phone Number RESULTING AGENCY * MRSA NASAL PCR (03/27/2025 10:46 PM CDT) Pathologist [facility] MRSA PCR RESULT Negative Negative, Invalid 03/28/2025 12:29 AM CDT [facility] Other NASOPHARYNGEAL SWAB / Unknown Non-Phlebotomy Collection / Unknown 03/27/2025 10:46 PM CDT 03/27/2025 11:17 PM CDT us Emperatriz Mcgregor SPED TEACHER, INCOME TAX MANAGER MICROBIOLOGY - GENERA L ORDERABLES Final Result [facility] [address] [place] [address] * (ABNORMAL) URINALYSIS REFLEX IF INDICATED BY ABNORMAL RESULTS (03/27/2025 5:43 PM CDT) SPECIFIC GRAVITY 1.015 1.003 - 1.030 03/27/2025 6:29 PM CDT [facility] URINE PH 6.0 5.0 - 9.0 03/27/2025 6:29 PM CDT [facility] WBC ESTERASE Negative Negative 03/27/2025 6:29 PM CDT [facility] NITRITE Negative Negative 03/27/2025 6:29 PM CDT [facility] PROTEIN, RANDOM URINE 30 mg/dL(A) Negative 03/27/2025 6:29 PM CDT [facility] URINE GLUCOSE, QUAL 1000 mg/dL(A) Negative 03/27/2025 6:29 PM CDT [facility] URINE KETONES 150 mg/dL(A) Negative 6:29 PM CDT [facility] UROBILINOGEN Normal Normal mg/dL 03/27/2025 6:29 PM CDT [facility] URINE BLOOD Negative Negative britney/ul 03/27/2025 6:29 PM CDT [facility] URINALYSIS COLOR Yellow 03/27/20 6:29 PM CDT [facility] URINALYSIS CLARITY Clear 03/27/2025 6:29 PM CDT [facility] WBC (Urine) Negative Negative, 0-5 /hpf 03/27/2025 6:29 PM CDT [facility] URINE RBC'S Negative Negative, 0-2 /hpf 03/27/2025 6:29 PM CDT [facility] EPITHELIAL CELLS Small amount /lpf 2024 6:29 PM CDT [facility] BACTERIA, URINE Few(A) Negative /hpf 03/27/2025 6:29 PM CDT [facility] Urine URINE SPECIMEN OBTAINED BY CLEAN CATCH PROCEDURE / Unknown Non-Phlebotomy Collection / Unknown 03/27/2025 5:43 PM CDT 03/27/2025 5:58 PM CDT us Carol Perez MD URINE ORDERABLES Final R esult [facility] [address] [place] [address] * POCT Urine HCG () (03/27/2025 5:37 PM CDT) Pathologist [facility] POC URINE Negative POC URINE CONTROL [employer] Pass Urine 03/27/2025 5:37 PM CDT us Carol Perez MD POINT OF CARE TESTING (M ANUAL) Final Result * (ABNORMAL) Hemoglobin A1C w/ Estimated Glucose (03/27/2025 5:32 PM CDT) HGB-A1C 9.1(H) 4.0 - 6.0 % 03/27/2025 9:18 PM CDT [facility] Est Average Glucose 214.5 mg/dL 03/27/2025 9:18 PM CDT [facility] Blood Venipuncture / Unknown 03/27/2025 5:32 PM CDT 03/27/2025 5:42 PM CDT Narrative [facility] - 03/27/2025 9:18 PM CDT HEMOGLOBIN A1C: DIABETIC PATIENTS: WELL-CONTROLLED: 6.2 - 7.0 INTERMEDIATE WELL-CONTROLLED: 7.0 - 9.0 POORLY-CONTROLLED: >9.0 Specimens containing greater than 5% of Hemoglobin F may result in lower than expected % HbA1C results. us Emperatriz Al Mcgregor SPED TEACHER, INCOME TAX MANAGER CHEMISTRY ORDERABLES Final Result [facility] [address] [place] [address] * (ABNORMAL) CMP (Comprehensive Metabolic Panel) (03/27/2025 5:32 PM CDT) SODIUM 135(L) 136 - 145 mmol/L 03/27/2025 6:10 PM CDT [facility] POTASSIUM 4.3 3.5 - 5.1 mmol/L 03/27/2025 6:10 PM CDT [facility] CHLORIDE 102 98 - 107 mmol/L 03/27/2025 6:10 PM CDT [facility] CO2, VENOUS 7(LL) 22 - 30 mmol/L 03/27/2025 6:10 PM CDT [facility] ANION GAP 30.3(H) <18.0 mmol/L 03/27/2025 6:10 PM CDT [facility] GLUCOSE 554(HH) 70 - 99 mg/dL 03/27/2025 6:10 PM CDT [facility] BUN 11 5 - 18 mg/dL 03/27/2025 6:10 PM CDT [facility] CREATININE, BLOOD 1.12(H) 0.60 - 1.00 mg/dL 03/27/2025 6:10 PM CDT [facility] BUN/CREATININE RATIO 10(L) 12 - 20 ratio 03/27/2025 6:10 PM CDT [facility] TOTAL PROTEIN 8.1(H) 6.0 - 8.0 g/dL 03/27/2025 6:10 PM CDT [facility] ALBUMIN 4.4 3.5 - 5.0 g/dL 03/27/2025 6:10 PM T [facility] A/G RATIO 1.2 1.0 - 2.2 03/27/2025 6:10 PM CDT [facility] CALCIUM 9.6 8.7 - 10.5 mg/dL 03/27/2025 6:10 PM T [facility] T BILI 0.5 0.2 - 1.2 mg/dL 03/27/2025 6:10 PM CDT [facility] SGOT (AST) 17 <43 U/L 03/27/2025 6:10 PM T [facility] SGPT (ALT) 6 <56 U/L 03/27/2025 6:10 PM T [facility] ALKALINE PHOSPHATASE 199(H) 40 - 150 U/L 03/27/2025 6:10 PM [facility] GFR, ESTIMATED >60 >=60 03/27/2025 6:10 PM T [facility] Comment: Creatinine Clearance is the preferred criteria for selecting drug dose adjustments in renally impaired patients. The GFR is provided as additional pertinent clinical information. GFR is reported in mL/min/1.73 sq m. Calculation based on the 2020 Chronic Kidney Disease Epidemiology Collaboration (CKD-EPI) equation refit without adjustment for race. GFR, EST. >60 >=60 025 6:10 PM [facility] Comment: Creatinine Clearance is the preferred criteria for selecting drug dose adjustments in renally impaired patients. The GFR is provided as additional pertinent clinical information. GFR is reported in mL/min/1.73 sq m. Calculation based on the 2009 Chronic Kidney Disease Epidemiology Collaboration (CKD-EPI). GFR, EST. NONAFRICAN 56(L) >=60 03/27/2025 6:10 PM [facility] Comment: Creatinine Clearance is the preferred criteria for selecting drug dose adjustments in renally impaired patients. The GFR is provided as additional pertinent clinical information. GFR is reported in mL/min/1.73 sq m. Calculation based on the 2009 Chronic Kidney Disease Epidemiology Collaboration (CKD-EPI). Blood Venipuncture / Unknown 03/27/2025 5:32 PM CDT 03/27/2025 5:42 PM CDT us Carol Perez MD CHEMISTRY ORDERABLES Fin al Result Performing Organization Address City/[facility]/ZIP Co de Phone Number [facility] [place] [address] * (ABNORMAL) Acetone / Ketones Serum Qual (03/27/2025 5:32 PM CDT) ACETONE Moderate amount(A) Negative 03/27/2025 6:03 PM CDT [facility] Blood Venipuncture / Unknown 03/27/2025 5:32 PM CDT 03/27/2025 5:42 PM CDT us Carol Perez MD CHEMISTRY ORDERABLES Fin al Result Performing Organization Address [facility] Co de Phone Number [facility] [place] [address] * (ABNORMAL) Blood Gases, Venous w/ O2 Saturation (03/27/2025 5:30 PM CDT) O2 STATUS 100 03/27/2025 5:39 PM CDT [facility] PH VENOUS 7.19(LL) 7.34 - 7.43 03/27/2025 5:39 PM CDT [facility] PCO2 (VENOUS) 19(L) 41 - 51 mmHg 03/27/2025 5:39 PM CDT [facility] PO2 VENOUS 68(H) 30 - 50 mmHg 03/27/2025 5:39 PM CDT [facility] O2 SAT DUL[place], MEASURED 88(H) 60 - 85 % 03/08 5:39 PM CDT [facility] BICARBONATE 7.1(L) 22.0 - 26.0 mmol/L 03/27/2025 5:39 PM CDT [facility] BASE VENOUS -18.1(L) -2.0 - 3.0 mmol/L 03/27/2025 5:39 PM CDT [facility] CARBOXYHEMOGLOBIN 1.9 0.0 - 5.0 % 03/27/2025 5:39 PM CDT [facility] METHEMOGLOBIN 0.3 0.0 - 1.5 % 03/27/2025 5:39 PM CDT [facility] DULCE Blood Gas Venipuncture / Unknown 03/27/2025 5:30 PM CDT 03/27/2025 5:35 PM CDT Narrative [facility] - 03/27/2025 5:39 PM CDT Interpretation - The usual approach to interpreting a VBG consists of using the venous measurements to estimate the corresponding arterial values, then using these estimated values for clinical decision-making exactly as if an ABG had been performed. The difference between the venous measurements and the arterial measurements depends upon the site of venous sampling and varies among laboratories. Correlation with arterial blood gases - Although arterial blood gas analysis is more accurate than venous analysis for the assessment of oxygenation, measurement of PCO2, pH, and HCO3 are similar with some minor adjustments: The central venous pH is usually 0.03 to 0.05 pH units lower than the arterial pH and the PCO2 is usually 4 to 5 mmHg higher, with little or no increase in HCO3. Mixed venous blood (ie, SvO2 drawn from a pulmonary artery catheter) gives results similar to central venous blood (ie, ScvO2 drawn from a central venous catheter). The peripheral venous pH is approximately 0.02 to 0.04 pH units lower than the arterial pH, the venous serum HCO3 concentration is approximately 1 to 2 meq/L higher, and the venous PCO2 is approximately 3 to 8 mmHg higher. There are no venous to arterial conversions for ScvO2, SvO2, or peripheral venous oxyhemoglobin saturation (PvO2). Importantly, sufficient variability between arterial and venous blood gas values may exist such that periodic correlation between arterial and venous blood gas values is always prudent. Hallie Don APRN, INCOME TAX MANAGER CHEMISTRY ORDERABL ES Final Result [facility] [place] [address] * EKG 12 LEAD (03/27/2025 5:19 PM CDT) Ventricular Rate 137 BPM EXTERNAL EKG Atrial Rate 137 BPM EXTERNAL EKG P-R Interval 118 ms EXTERNAL EKG QRS Duration 72 ms EXTERNAL EKG Q-T Duration 308 ms EXTERNAL EKG QTC CALCULATION 465 ms EXTERNAL EKG P [place] 59 degrees EXTERNAL EKG R [place] 50 degrees EXTERNAL EKG T [place] 38 degrees EXTERNAL EKG 03/27/2025 5:19 PM CDT Impressions EXTERNAL EKG - 03/30/2025 10:20 PM CDT Sinus tachycardia Otherwise normal ECG No previous ECGs available Confirmed by Maria Elena Bowen ([id number]) on 03/30/2025 10:20:20 PM Narrative Procedure Note Maria Elena Bowen MD PhD - 03/30/2025 IMPRESSION: Sinus tachycardia Otherwise normal ECG No previous ECGs available Confirmed by Maria Elena Bowen ([id number]) on 03/30/2025 10:20:20 PM Carol Perez MD IMG ECG ORDERABLES Final Result Performing Organization Address [facility] Co de Phone Number EXTERNAL EKG * EKG SCAN (03/27/2025 12:00 AM CDT) 03/27/2025 us Provider Scan IMG ECG ORDERABLES Final Result RESULTING AGENCY from Last 3 Months Insurance MEDICARE C [facility] MEDICAID [place] Advance Directives * Full Code (Latest Code Status on File) Date Activated Date Inactivated Comments 03/27/2025 8:39 PM CPR-Full Jayleen tment: FULL ARREST: Attempt Resuscitation/CPR wit intubation and mechanical ventilation. PRE-ARREST: Use entire range of life support measures to stabilize the patient. Care Teams Application Project Leader Relationship Specialty Start Date End Date Kalyn Osorio APRN, CNP PCP - General Family Medicine 03/24/17 Arvind Ovalle MD [address] [place] [address] Consulting Physician Neurology 03/24/17
--- OUTSIDE RECORDS SUMMARY | 2025-06-01 11:04 | XMS_ITS | Encounter Summary ---
Author Organization [facility] Health Address [address] [place] [address] Care Team Providers Care Ground Nuclear Weapons Assembly Officer Name Role Phone Leslie Humphries RN Unavailable [phone] Kalyn Osorio APRN-DIRECTOR OF KNOWLEDGE MANAGEMENT Primary Care Provider [phone] Danuta Emmanuel MD Unavailable Encounter Details Date Type Department Care Team (Late st Contact Info) Description 11/30/2023 Telephone [facility] - FROZEN YOGURT MAKER [address] [place] [address] Marilyn Mcpherson, KENYON/LD [address] [place] [address] Social History Tobacco Use Types Packs/Day Years Used Date Smoking Tobacco: Former Cigarettes 0.3 0.5 1 - 12/05/2012 Smokeless Tobacco: Never Alcohol Use Standard Drinks/Week Comments No 0 (1 standard drink = 0.6 oz pur e alcohol) PHQ-2 Answer Date Recorded PHQ2 TOTAL SCORE 4 08/13/2021 Education Answer Date Recorded What is the highest level of school you have completed or the highest degree you have received? High school graduate 11/30/2023 Comments Yes Sex and Gender Information Value Date Recorded Sex Assigned at Not on file Legal Sex Female 9:41 AM CAST SHELL GRINDER Gender Identity Not on file Sexual Orientation Not on file Occupation Industry Job Start Date Job End Date Medically disabled Not on file Not on file Not on fi le documented as of this encounter Functional Status * Is person deaf or have serious hearing difficulty? Answer Date of Assessment Author No 05/21/2016 11:30 PM Zack Robertson, RN * Is person blind or have serious difficulty seeing? Answer Date of Assessment Author No 05/21/2016 11:30 PM CAST SHELL GRINDER Zack Bowen RN * Does person have serious difficulty walking/climbing stairs? Answer Date of Assessment Author No 05/21/2016 11:30 PM CAST SHELL GRINDER Zack Bowen, RN * Does person have difficulty dressing/bathing? Answer Date of Assessment Author No 05/21/2016 11:30 PM CAST SHELL GRINDER Zack Bowen RN * Does person have difficulty doing errands alone? Answer Date of Assessment Author No 05/21/2016 11:30 PM Zack Robertson RN documented as of this encounter Mental Status * Does person have difficulty concentrating/remembering/making decisions? Answer Entry Date Author No 05/21/2016 11:30 PM Zack Robertson RN documented in this encounter Miscellaneous Notes * Telephone Encounter - Kathleen Alfonso - 11/30/2023 12:05 PM CDT Tanika from [facility] [place] all to let office know Pt is scheduled to come in tomorrow andget labs done and have a visit as soon as they get results back they will send over offices visit notes and labs. Thank you Kathleen CB: [phone] ext [phone] documented in this encounter Plan of Treatment Not on file documented as of this encounter Goals Goal Patient Goal Type Associated Problems Recent Progress Patient-Stated? Author LIAS Lifestyle: Have labs drawn Lifestyle Not on track(01/10/20 14 10:44 AM CDT) No Demetria Arora HEMOGLOBIN A1C < 7.0 Result Component 6.3(03/17/2024 4:01 AM CDT) No John Cole documented as of this encounter Visit Diagnoses Not on filedocumented in this encounter Additional Health Concerns Infection Onset Date Last Indicated Resolved Time COVID-19 Under Investigation 01/25/2024 01/25/2024 01/26/2024 12:28 AM CDT COVID-19 Under Investigation 02/16/2024 02/16/2024 02/16/2024 6:01 PM CDT COVID-19 Confirmed 02/16/2024 02/16/2024 4:33 AM CDT documented as of this encounter Care Teams Ground Nuclear Weapons Assembly Officer Relationship Specialty Start Date End Date Kalyn Osorio APRN-DIRECTOR OF KNOWLEDGE MANAGEMENT [address] [place] [address] PCP - General Nurse Practitioner Family 08/15/18 Leslie Humphries, RN Breaker Table Worker 05/16/15 Danuta Emmanuel MD [address] [place] [address] Primary Bread Wrapper Obstetrics and Gynecology 11/29/23 documented as of this encounter
--- OUTSIDE RECORDS SUMMARY | 2025-06-01 11:04 | XMS_ITS | Encounter Summary ---
Author Organization [facility] Address [address] [place] [address] Care Team Providers Care Supervisor Mixing Name Role Phone Leslie Humphries RN Unavailable [phone] Kalyn Osorio DAYLIGHT DRILLER-NATIONAL ACCOUNT REPRESENTATIVE Primary Care Provider [phone] Danuta Emmanuel MD Unavailable Reason for Visit * Reason Onset Date Comments Appointment 03/15/2024 Encounter Details Date Type Department Care Team (Late st Contact Info) Description 03/15/2024 Telephone [facility] - Centralized Scheduling [address] [place] [address] Boo Loya MD [address] [phone] Appointment Social History Tobacco Use Types Packs/Day Years Used Date Smoking Tobacco: Former Cigarettes 0.3 0.5 1 - 12/05/2012 Smokeless Tobacco: Never Alcohol Use Standard Drinks/Week Comments No 0 (1 standard drink = 0.6 oz pur e alcohol) Overall Financial Resource Strain (CARDIA) Answe r Date Recorded How hard is it for you to pa y for the very basics like food, housing, medical care, and heating? Not very hard 03/17/2024 PHQ-2 Answer Date Recorded Patient Health Questionnaire-2 Score 3 12/20/2023 [place] [facility] [employer] - Occupational Stress Questionnaire Answer Date Recorded Do you feel stress - tense, restless, nervous, or anxious, or unable to sleep at night because your mind is troubled all the time - these days? Very much 03/17/2024 Hunger Vital Sign Answer Date Recorded Within the past 12 months, y ou worried that your food would run out before you got the money to buy more. Never true 03/17/20 24 Within the past 12 months, t he food you bought just didn't last and you didn't have money to get more. Never true 03/17/2024 PRAPARE - Transportation Answer Date Re corded In the past 12 months, has l ack of transportation kept you from medical appointments or from getting medications? Yes 03/07 In the past 12 months, has l ack of transportation kept you from meetings, work, or from getting things needed for daily living? Yes 03/17/2024 Housing Stability Vital Sign Answer Olaf e Recorded In the last 12 months, was t here a time when you were not able to pay the mortgage or rent on time? No 03/17/2024 In the last 12 months, how many places have you lived? 1 03/17/2024 In the last 12 months, was t here a time when you did not have a steady place to sleep or slept in a longterm (including now)? No 03/17/2024 Education Answer Date Recorded What is the highest level of school you have completed or the highest degree you have received? High school graduate 11/30/2023 Comments Yes Sex and Gender Information Value Date Recorded Sex Assigned at Not on file Legal Sex Female 9:41 AM CMM OPERATOR Gender Identity Not on file Sexual Orientation Not on file Occupation Industry Job Start Date Job End Date Medically disabled Not on file Not on file Not on fi le documented as of this encounter Functional Status * Is person deaf or have serious hearing difficulty? Answer Date of Assessment Author No 02/17/2024 9:30 AM Phyllis Rick RN * Is person blind or have serious difficulty seeing? Answer Date of Assessment Author No 02/17/2024 9:30 AM Phyllis Rick RN * Does person have serious difficulty walking/climbing stairs? Answer Date of Assessment Author No 02/17/2024 9:30 AM CDT Phyllis Mares, KEO * Does person have difficulty dressing/bathing? Answer Date of Assessment Author No 02/17/2024 9:30 AM CDT Phyllis Mares RN * Does person have difficulty doing errands alone? Answer Date of Assessment Author No 02/17/2024 9:30 AM CDT Phyllis Mares, KEO documented as of this encounter Mental Status * Does person have difficulty concentrating/remembering/making decisions? Answer Entry Date Author No 02/17/2024 9:30 AM CDT Phyllis Mares RN documented in this encounter Miscellaneous Notes * Telephone Encounter - Blanche Holm RN - 03/15/2024 9:41 AM CDT LVM reminding pt of importance of care. Reminded pt of next appointment dates, times, and locations. Gave CB number. * Telephone Encounter - Heide Menjivar - 03/15/2024 9:29 AM CDT Pt called in with car trouble and cannot make her appt. Pt can be reached at [phone] . documented in this encounter Plan of Treatment Not on file documented as of this encounter Goals Goal Patient Goal Type Associated Problems Recent Progress Patient-Stated? Author LISA Lifestyle: Have labs drawn Lifestyle Not on track(01/10/20 14 10:44 AM CDT) No Demetria Arora HEMOGLOBIN A1C < 7.0 Result Component 6.3(03/17/2024 4:01 AM CDT) No John Cole documented as of this encounter Visit Diagnoses Not on filedocumented in this encounter Care Teams Supervisor Mixing Relationship Specialty Start Date End Date Kalyn Osorio APRN-SHAMIKA [address] [place] [address] PCP - General Nurse Practitioner Family 08/15/18 Yandel Lesliesimba Cantu, RN Wheel Tuner 05/16/15 Danuta Emmanuel MD [address] [place] [address] Primary Missile Inspector Preflight Obstetrics and Gynecology 11/29/23 documented as of this encounter
--- OUTSIDE RECORDS SUMMARY | 2025-06-01 11:04 | XMS_ITS | Encounter Summary ---
Author Organization [facility] Address [address] [place] [address] Care Team Providers Care Chemicals Fermentation Operator Name Role Phone Vernon Phoenix DO Primary Care Provider Trinh Meléndez MD Primary Care Provider [phone] Leslie Humphries RN Unavailable [phone] Kalyn Osorio THIRD HAND-ADMISSIONS SUPERVISOR Primary Care Provider [phone] Unknown, Provider Primary Care Provider Unavaila Kalyn Fabian APRN-ADMISSIONS SUPERVISOR Primary Care Provider [phone]- [phone] Danuta Emmanuel MD Unavailable Encounter Details Date Type Department Care Team (Late st Contact Info) Description 05/19/2013 Telephone [facility] Women's Health Maternal & Care [address] [place] [address] Brigitte Feliz, [facility] [place] [address] [place] [phone] Social History Tobacco Use Types Packs/Day Years Used Date Smoking Tobacco: Former Cigarettes 0.3 0.5 1 - 12/05/2012 Smokeless Tobacco: Never Alcohol Use Standard Drinks/Week Comments No 0 (1 standard drink = 0.6 oz pur e alcohol) Comments Yes Sex and Gender Information Value Date Recorded Sex Assigned at Not on file Legal Sex Female 9:41 AM HOST/HOSTESS HEAD Gender Identity Not on file Sexual Orientation Not on file Occupation Industry Job Start Date Job End Date working Not on file Not on file Not on file documented as of this encounter Plan of Treatment Not on file documented as of this encounter Visit Diagnoses Not on filedocumented in this encounter Additional Health Concerns Infection Onset Date Last Indicated Resolved Time COVID-19 Under Investigation 01/25/2024 01/25/2024 01/26/2024 12:28 AM CDT COVID-19 Under Investigation 02/16/2024 02/16/2024 02/16/2024 6:01 PM CDT COVID-19 Confirmed 02/16/2024 02/16/2024 4:33 AM CDT documented as of this encounter Care Teams Chemicals Fermentation Operator Relationship Specialty Start Date End Date Vernon Phoenix DO PCP - General Family Medicine 11/30/12 06/28/13 Trinh Davis MD PCP - General Obstetrics and Gynecology 06/29/13 10/05/13 Kalyn Osorio APRN-ADMISSIONS SUPERVISOR [address] [place] [address] PCP - General Nurse Practitioner Family 01/05/17 10/24/17 Unknown, Provider [address] [address] PCP - General 10/25/17 08/14/18 Kalyn Osorio APRN-ADMISSIONS SUPERVISOR [address] [address] PCP - General Nurse Practitioner Family 08/15/18 Leslie Humphries, KEO Shirt Trimmer 05/16/15 Danuta Emmanuel MD [address] [place] [id number] Primary Hand Wrapper Operator Obstetrics and Gynecology 11/29/23 documented as of this encounter
--- OUTSIDE RECORDS SUMMARY | 2025-06-01 11:04 | XMS_ITS | Clinical Summary ---
Author Organization [facility] Address [address] [place] [address] Care Team Providers Care Licensed Sales Assistant Name Role Phone Alma Trejo MD Primary Care Prov ider Dontae Craven MD Unavailable [phone] Allergies Active Allergy Reactions Criticality Noted Date Comments Cyclobenzaprine Unknown,Anaphylaxis High 06/21/2015 Tongue swelling Medications PROAIR HFA 90 mcg/actuation inhaler Inhale 2 puffs every 4 (four) hours as needed 5 09/23/19 18 Active glucagon 1 mg kit Inject 1 mL (1 mg total) into the muscle as instructed as needed 10/14/19 18 Active pregabalin (LYRICA) 150 mg capsule Take 1 capsule (150 mg total) by mouth 2 (two) times a day 11/18/19 18 Active sertraline (ZOLOFT) 100 mg tabletIndications: Anxiety with Depression Take 75 mg by mouth daily Active cetirizine (ZyrTEC) 10 mg tabletIndications: Allergic Rhinitis Take 1 tablet (10 mg total) by mouth daily Active cholecalciferol (VITAMIN D-3) 10,000 unit tabletIndications: Vitamin D Deficiency Take 0.08 tablets (800 Units total) by mouth daily Active insulin glargine (LANTUS, BASAGLAR, SEMGLEE) 100 unit/mL (3 mL) pen for injectionIndicatio ns:Diabetes Mellitus Inject 22 Units under the skin every 12 (twelve) hours 13.2 mL 11/24/19 22 Active insulin lispro (HumaLOG, ADMELOG) 100 unit/mL pen for injectionIndicatio ns:type 1 diabetes mellitus Inject 1-4 Units under the skin 3 (three) times a day with meals (1 unit for every 50 mg/dL blood glucose greater than 150 mg/dL up to max 4 units) Refer to After Visit Summary for Sliding Scale Insulin Instructions. 3.6 mL 11/24/19 22 Active insulin lispro (HumaLOG, ADMELOG) 100 unit/mL pen for injectionIndicatio ns:Diabetes Mellitus Inject 10 Units under the skin 3 (three) times a day with meals 9 mL 11/24/19 22 Active ondansetron ODT (ZOFRAN-ODT) 8 mg disintegrating tablet Take 1 tablet (8 mg total) by mouth every 8 (eight) hours as needed for nausea or vomiting 30 tablet 10/25/19 24 Active acetaminophen-code ine (TYLENOL with CODEINE #4) 300-60 mg per tabletIndications: Closed avulsion fracture of right calcaneus, initial encounter Take 0.5-1 tablets by mouth every 6 (six) hours as needed for pain P.r.n. pain not relieved by celecoxib alone. Take with food. Collaborating physician Newton Herrera MD 15 tablet 08/13/19 25 Active Active Problems Problem Noted Date Diagnosed Date Closed avulsion fracture of right calcaneus, initial encounter 08/12/2024 Diabetic ketoacidosis withou t coma associated with type 1 diabetes mellitus ([facility]) 05/15/2019 Assessment & Plan (05/15/2019 8:45 AM [employer]): Due to pump site failure. Anion gap 33 on arrival with glucose 386 (was reportedly 440 at home). Symptoms improving with insulin drip. Monitor BMP q.4 while insulin drip. Monitor electrolytes and replete as necessary. When anion gap closes, can administer subcutaneous insulin, start p.o. diet, and overlap with insulin drip for 2 hours. clinical nurse educator consulted. Depression 05/15/2019 Assessment & Plan (05/15/2019 8:51 AM [employer]): Continue home sertraline. Anxiety 05/15/2019 Assessment & Plan (05/15/2019 8:51 AM [employer]): Continue home sertraline. Asthma 02/16/2018 Assessment & Plan (05/15/2019 8:49 AM [employer]): Replace home albuterol MDI with nebs while inpatient. Seasonal allergies 02/16/2018 High risk medication use 12/20/2017 Assessment & Plan (12/22/2017 12:47 PM CDT): Intense insulin regimen in the setting of variable PO intake places the patient at increased risk of hypoglycemia. We will continue to intensely monitor blood glucose and titrate insulin as needed to optimize glycemic control to avoid hypoglycemic/hyperglycemic events. Assessment & Plan (12/21/2017 12:31 PM CDT): Intense insulin regimen in the setting of variable PO intake places the patient at increased risk of hypoglycemia. We will continue to intensely monitor blood glucose and titrate insulin as needed to optimize glycemic control to avoid hypoglycemic/hyperglycemic events. Assessment & Plan (12/20/2017 3:26 PM CDT): Intense insulin regimen in the setting of variable PO intake places the patient at increased risk of hypoglycemia. We will continue to intensely monitor blood glucose and titrate insulin as needed to optimize glycemic control to avoid hypoglycemic/hyperglycemic events. Encounter for fitting and adjustment of insulin pump 12/20/2017 Assessment & Plan (12/22/2017 12:47 PM CDT): Insulin pump re-started 12/19 Safe to continue insulin pump Basal: 0000-1.3, 0800-1.65, 2300-1.2, ICR 1:5, ISF 20, Target 90-120, MARY 4 Assessment & Plan (12/21/2017 12:31 PM CDT): Insulin pump re-started 12/19 Safe to continue insulin pump Basal: 0000-1.3, 0800-1.65, 2300-1.2, ICR 1:5, ISF 20, Target 90-120, MARY 4 Assessment & Plan (12/20/2017 3:25 PM CDT): Insulin pump re-started Continue insulin pump Basal: 0000-1.3, 0800-1.65, 2300-1.2, ICR 1:5, ISF 20, Target 90-120, MARY 4 Type I diabetes mellitus 12/17/2017 Overview (02/16/2018): 27 year old T1DM female with uncontrolled diabetes complicated with neuropathy A1C 9.9% on insulin pump at home Overview: Overview: On Apidra pump Diagnosed age 5 Currently on pump HbA1c 12.5 on 07/18/10>>>9.3 on 08/26/12 Assessment & Plan (12/22/2017 12:45 PM CDT): Over the previous 24 hours, blood glucose not at goal with range of 177-318 mg/dl with 97.75 units TDD insulin coverage. She continues to utilize her insulin pump. Target inpatient blood glucose is 100-180 mg/dl. Blood glucose trended up overnight and she reports I need insulin, my pump ran out with the bolus I had this morning. Humalog 4 units given at ~1030 for basal coverage; pump resumed at 1210 this afternoon with bolus of 8.5 units for blood glucose of 309 mg/dl. We will continue the current pump settings and will continue to monitor blood glucose throughout the day. PLAN: - Continue insulin pump: Basal: 0000-1.3, 0800-1.65, 2300-1.2, ICR 1:5, ISF 20, Target 90-120, MARY 4 Site was changed today 12/22 - Monitor blood glucose QID We will continue to intensely monitor blood glucose and titrate insulin as needed to optimize glycemic control to avoid hypoglycemic/hyperglycemic events. DISCHARGE PLANNING: - we anticipate she will continue the current insulin pump settings at discharge to rehab facility FOLLOW UP: -She should follow up with Dr Craven 1-2 weeks after discharge to reassess glycemic control and to adjust insulin pump settings as needed. Recommendations for diabetes management were discussed with the primary team. We will continue to intensely monitor blood glucose and titrate insulin as needed to optimize glycemic control to avoid hypoglycemic/hyperglycemic events. Assessment & Plan (12/21/2017 12:30 PM CDT): Over the previous 24 hours, blood glucose not at goal with range of 78-222 mg/dl with 79.75 units TDD insulin coverage. She continues to utilize her insulin pump. Target inpatient blood glucose is 100-180 mg/dl. Blood glucose dropped to 78 mg/dl after 17 unit bolus of insulin for 70 grams of carbohydrates at lunch yesterday. Patient reports that she boluses immediately after meals to avoid hypoglycemic events. We will continue the current pump settings and will continue to monitor blood glucose throughout the day. PLAN: - Continue insulin pump: Basal: 0000-1.3, 0800-1.65, 2300-1.2, ICR 1:5, ISF 20, Target 90-120, MARY 4 Site was accessed 12/19; will need site change today or tomorrow morning - Monitor blood glucose QID We will continue to intensely monitor blood glucose and titrate insulin as needed to optimize glycemic control to avoid hypoglycemic/hyperglycemic events. DISCHARGE PLANNING: - we anticipate she will continue the current insulin pump settings at discharge to rehab facility - DM education and nutrition prior to discharge FOLLOW UP: -She should follow up with Dr Craven 1-2 weeks after discharge to reassess glycemic control and to adjust insulin pump settings as needed. Recommendations for diabetes management were discussed with the primary team. We will continue to intensely monitor blood glucose and titrate insulin as needed to optimize glycemic control to avoid hypoglycemic/hyperglycemic events. Assessment & Plan (12/20/2017 3:23 PM CDT): Over the previous 24 hours, blood glucose improved and well controlled with range of 112-185 mg/dl. Her insulin pump was resumed. Target inpatient blood glucose is 100-180 mg/dl. We will continue the current pump settings and will continue to monitor blood glucose throughout the day. PLAN: - Continue insulin pump: Basal: 0000-1.3, 0800-1.65, 2300-1.2, ICR 1:5, ISF 20, Target 90-120, MARY 4 - Monitor blood glucose QID We will continue to intensely monitor blood glucose and titrate insulin as needed to optimize glycemic control to avoid hypoglycemic/hyperglycemic events. DISCHARGE PLANNING: - we anticipate she will continue the current insulin pump settings at discharge to rehab facility - DM education and nutrition prior to discharge FOLLOW UP: -She should follow up with Dr Craven 1-2 weeks after discharge to reassess glycemic control and to adjust insulin pump settings as needed. Recommendations for diabetes management were discussed with the primary team. We will continue to intensely monitor blood glucose and titrate insulin as needed to optimize glycemic control to avoid hypoglycemic/hyperglycemic events. Assessment & Plan (12/18/2017 4:23 PM CDT): 27-year-old type 1 diabetic with uncontrolled diabetes complicated with neuropathy, A1c 9.9%, on insulin pump at home. -She is awaiting pump supplies and can continue on subcut regimen until this arrives -Lantus 30 units changed to NPH 10 q 8 to allow ease of transition back to pump today -Humalog 10 U TID, MDS -Patient can transition back to pump at home settings as below: Basal: 0000-1.3, 0800-1.65, 2300-1.2, ICR 1:5, ISF 20, Target 90-120, MARY 4 -DM education and nutrition prior to discharge -She will FU with Dr Craven Assessment & Plan (12/17/2017 6:17 PM CDT): 27-year-old type 1 diabetic with uncontrolled diabetes complicated with neuropathy, A1c 9.9%, on insulin pump at home with total basal dose of 36.35, carb ratio 5, sensitivity 20, target 90-120, active insulin time 4hrs presented with tibial fracture after a fall Patient presented with a blood sugar in 300s-states that she did not bolus correctly for dinner after her fall. She was taken off insulin pump overnight and transition to NPH 10 units. Plan: Recommend starting on Lantus 30 units q.a.m. Humalog 10 units t.i.d. after meals Mid dose sliding scale Continue to monitor q.i.d. Will transition back to insulin pump possibly tomorrow Vitamin D deficiency 12/17/2017 Assessment & Plan (05/15/2019 8:50 AM [employer]): Continue home vitamin-D supplement. Assessment & Plan (12/22/2017 12:46 PM CDT): Vitamin-D levels low at 17 despite taking vitamin-D supplements at home. Recommend starting on 100,000 units of vitamin D weekly Assessment & Plan (12/21/2017 12:30 PM CDT): Vitamin-D levels low at 17 despite taking vitamin-D supplements at home. Recommend starting on 100,000 units of vitamin D weekly Assessment & Plan (12/20/2017 3:23 PM CDT): Vitamin-D levels low at 17 despite taking vitamin-D supplements at home. Recommend starting on 100,000 units of vitamin D weekly Assessment & Plan (12/18/2017 4:28 PM CDT): Vitamin-D levels low at 17 despite taking vitamin-D supplements at home. Recommend starting on 100,000 units of vitamin D weekly Assessment & Plan (12/17/2017 6:18 PM CDT): Vitamin-D levels low at 17 despite taking vitamin-D supplements at home. Recommend starting on 100,000 units of vitamin D weekly Elevated TSH 12/17/2017 Assessment & Plan (12/22/2017 12:47 PM CDT): Elevated TSH of 7 on 12/17/17. Patient is currently under stress. Recommend repeating her thyroid function test in the 4-6 weeks Assessment & Plan (12/21/2017 12:30 PM CDT): Elevated TSH of 7. Patient is currently under stress. Recommend repeating her thyroid function test in the 4-6 weeks Assessment & Plan (12/20/2017 3:24 PM CDT): Elevated TSH of 7. Patient is currently under stress. Recommend repeating her thyroid function test in the 4-6 weeks Assessment & Plan (12/18/2017 4:29 PM CDT): Elevated TSH of 7. Patient is currently under stress. Recommend repeating her thyroid function test in the 4-6 weeks Assessment & Plan (12/17/2017 6:19 PM CDT): Elevated TSH of 7. Patient is currently under stress. Recommend repeating her thyroid function test in the 4-6 weeks Tibia fracture 12/16/2017 Closed displaced spiral fracture of shaft of lef t tibia 12/16/2017 Assessment & Plan (12/22/2017 12:46 PM CDT): Same level mechanical fall. TSH 7 felt to be euthyroid sick can be checked as outpatient PTH normal Vit D low: please follow supplementation as below We would recommend outpatient bone density and follow-up with primary press department manager Assessment & Plan (12/21/2017 12:30 PM CDT): Same level mechanical fall. TSH 7 felt to be euthyroid sick can be checked as outpatient PTH normal Vit D low: please follow supplementation as below We would recommend outpatient bone density and follow-up with primary press department manager Assessment & Plan (12/20/2017 3:23 PM CDT): Same level mechanical fall. TSH 7 felt to be euthyroid sick can be checked as outpatient PTH normal Vit D low: please follow supplementation as below We would recommend outpatient bone density and follow-up with primary press department manager Assessment & Plan (12/18/2017 4:28 PM CDT): Same level mechanical fall. TSH 7 felt to be euthyroid sick can be checked as outpatient PTH normal Vit D low: please follow supplementation as below We would recommend outpatient bone density and follow-up with primary press department manager Assessment & Plan (12/17/2017 6:17 PM CDT): Same level mechanical fall. Recommend checking TSH, PTH, celiac disease screen, vitamin-D level to rule out any secondary causes leading to fracture We would recommend outpatient bone density and follow-up with primary press department manager Obese 04/17/2016 Urinary tract infection without hematuria 2014 Placenta previa antepartum 06/30/2013 Migraine 05/23/2012 Migraine headache 11/29/2009 Left upper quadrant abdominal tenderness 010 Cholelithiases 09/24/2009 Headache(784.0) 09/24/2009 Vomiting 09/24/2009 Immunizations Immunization Administration Dates Next Due Tdap 11/26/2022 Surgical History Surgery Date Site/Laterality Comments SECTION 06/07/2013 - 06/06/2014 CHOLECYSTECTOMY 06/07/2013 - 06/06/2014 TYMPANOSTOMY TUBE PLACEMENT 06/07/2000 - 06/06/2001 FRACTURE SURGERY 06/07/2017 - 06/06/2018 Left broken leg Medical History Medical History Date Comments Migraine without aura and wi thout status migrainosus, not intractable Common migraine without a ura - (Added by TW Conv) Anxiety Depression Asthma Type 1 diabetes Diabetic peripheral neuropathy 2016 Family History Medical History Relation Name Comments Breast cancer Cousin maternal cousi ns x 2 Hypertension Father Diabetes Father's Brother Diabetes Father's Sister Heart attack Maternal Grandfather Hypertension Maternal Grandfather Diabetes Maternal Grandmother Hypertension Maternal Grandmother Coronary artery disease Mother Hypertension Mother Diabetes Mother's Sister Heart attack Mother's Sister cause of patricia th Hypertension Paternal Grandfather Hypertension Paternal Grandmother Relation Name Status Comments Cousin Father Father's Brother Father's Sister Maternal Grandfather Fatal M I at ~60 y/o Maternal Grandmother Mother Mother's Sister Paternal Grandfather Paternal Grandmother Social History Tobacco Use Types Packs/Day Years Used Date Smoking Tobacco: Former Cigarettes 0.1 3 2 011 - 2013 Smokeless Tobacco: Never Tobacco Cessation:Counseling Given: Not Answered Alcohol Use Standard Drinks/Week Comments Yes 2 (1 standard drink = 0.6 oz pur e alcohol) Ocassionally AUDIT-C Answer Date Recorded Q1: How often do you have a drink containing alcohol? Never 08/18/2024 Q2: How many drinks containi ng alcohol do you have on a typical day when you are drinking? Patient does not drink Q3: How often do you have si x or more drinks on one occasion? Never 08/18/2024 PHQ-2 Answer Date Recorded PHQ-2 Score 0 05/15/2019 Personal Safety Answer Date Recorded Have you ever been in or are you currently in a harmful physical or emotional relationship or is someone making you feel afraid or unsafe? Denies 08/12/2024 Comments No Sex and Gender Information Value Date Recorded Sex Assigned at Not on file Legal Sex Female 5:59 PM [employer] Gender Identity Not on file Sexual Orientation Not on file Occupation Industry Job Start Date Job End Date Disabled Not on file Not on file Not on file Obstetrics History Para Term AB IAB SAB Ectopic Multiple Livin g Live Births 1 1 1 0 0 1 1 Date Outcome GA Total Labor Labor/2nd/3rd Weight Sex Type Anes PTL Lidia A1 A5 Name Clin 2014 Term 38w 0d 4.281 kg (9 lb 7 oz) M CS-LT ranv Living Complications:Pre eclampsia Last Filed Vital Signs Vital Sign Reading Time Taken Comments Blood Pressure 147/87 08/18/2024 10:33 AM CDT Pulse 100 08/18/2024 10:33 AM CDT Temperature 36.5 C (97.7 F) 08/12/2024 1:37 PM [employer] Respiratory Rate 20 08/18/2024 10:33 AM CDT Oxygen Saturation 100% 08/12/2024 1:37 PM [employer] Inhaled Oxygen Concentration - - Weight 130.6 kg (288 lb) 08/28/2024 3:30 PM CDT Height 165.1 cm (5' 5) 08/28/2024 3:30 PM CDT Body Mass Index 47.93 08/28/2024 3:30 PM CDT Plan of Treatment Health Maintenance Due Date Last Done Comments Albumin Creatinine Ratio, Urine 1990 Foot Exam 1992 Hepatitis C Screening 1992 Dilated Eye Exam 2002 Varicella Vaccines (1 of 2 - 13+ 2-dose series) 2005 Pneumococcal vaccine <65 (1 of 2 - PCV) 09/11/2011 HPV Vaccines (1 - 3-dose SCD M series) 09/11/2019 Lipid Panel 12/13/2019 12/12/2018, 12/17/2017 Depression Screening 05/14/2020 05/14/2019 Cervical Cancer Screening 07/17/2021 07/17/2020 Regular Well Visit/Exam 18-64 07/17/2021 07/17/2020 TSH Level 11/20/2022 11/20/2021, 08/05, 12/17/2017, Additional history exists Hemoglobin A1C 09/15/2024 03/17/2024, 11/05, 04/28/2021, Additional history exists eGFR 10/23/2024 10/24/2023, 11/05, 11/22/2021, Additional history exists Influenza Vaccine (#1) 2025 05/06/2005, 2002 DTaP/Tdap/Td Vaccine (11 - T d or Tdap) 02/20/2034 02/21/2024, 11/26/2022, 08/16/2018, Additional history exists Hepatitis B Screening Completed 06/30/1993 , 06/30/1993, 1992, Additional history exists Medical Devices Implanted Type Area Network Intern Device Identifier Shelf Expiration Date Model / Serial / Lot [employer]/Ort ho [id number] Trigen [place]-Nail 8.5mm 33cm Tibia Nail Intramedullary Titanium - Sxx - [id number] Implanted:Qty: 1 on 12/17/2017 by Julieth Archibald MD at [facility] Nail Left: Tibia [employer]o [id number] 01/05/2023 [id number] / XX / [employer]/Ort ho [id number] 4.5mm 50mm Low Profile Internal Capture Femur Screw Bone Trigen - Sxx - [id number] Implanted:Qty: 1 on 12/17/2017 by Julieth Archibald MD at [facility] Screw Left: Tibia [employer]o [id number] 07/11/2026 [id number] / XX / [id number] [employer]/Ort ho [id number] 4.5mm 37.5mm Low Profile Internal Capture Femur Screw Bone Trigen - Sxx - [id number] Implanted:Qty: 1 on 12/17/2017 by Julieth Archibald MD at [facility] Screw Left: Tibia [employer]o [id number] 11/22/2025 [id number] / XX / [id number] [employer]/Ort ho [id number] 4.5mm 40mm Low Profile Internal Capture Femur Screw Bone Trigen - Sxx - [id number] Implanted:Qty: 1 on 12/17/2017 by Julieth Archibald MD at [facility] Screw Left: Tibia [employer]o [id number] 10/05/2027 [id number] / XX / [id number] [employer]/Ort ho [id number] Trigen 4.5mm 27.5mm Low Profile Screw Bone Intramedullary Nailing - Sxx - [id number] Implanted:Qty: 1 on 12/17/2017 by Julieth Archibald MD at [facility] Screw Left: Tibia [employer] [id number] 04/07/2023 [id number] / XX / [id number] Procedures Procedure Name Priority Date/Time Associated Diagnosis Comments EGFR STAT 10/24/2023 8:02 PM CDT HEMOGLOBIN A1C Add-On 11/22/2021 3:20 AM CDT THYROID FUNCTION CASCADE Routine 11/20/2021 6:35 AM CDT PAP AND HIGH RISK HPV, REFLEX TO GENOTYPING Routine 07/17/2020 10:20 AM [employer] LIPID PANEL STAT 12/17/2017 12:10 PM CDT from Last 3 Months or Most Recently Relevant to Health Maintenance Results * eGFR (10/24/2023 8:02 PM CDT) eGFR >90 >=60 mL/min/1. 73 m2 Comment: Interpretive Data Reference Interval Normal >/= 90 mL/min/1.73m2 Mildly decreased* 60 - 89 mL/min/1.73m2 Mildly to moderately decreased 45 - 59 mL/min/1.73m2 Moderately to severely decreased 30 - 44 mL/min/1.73m2 Severely decreased 15 - 29 mL/min/1.73m2 Kidney Failure < 15 mL/min/1.73m2 *Relative to young adult level Estimated glomerular filtration rate is determined by the 2020 CKD-EPI equation recommended by the National Kidney Foundation (A Unifying Approach to GFR Estimation: Recommendations of the NKF-ASK Task Force on Reassessing the Inclusion of Race in Diagnosing Kidney Disease, JASN 2020). The CKD-EPI equation should not be used for patients with unstable renal function and has not been validated in children and those over 70. Current interpretive data was last reviewed 2021. Blood 10/24/2023 8:02 PM CDT 10/24/2023 8:18 PM CDT us Dakota Issa MD LAB BLOOD ORDERABLE S Final Result [facility] ([place]) [address] [facility] [place] [address] * (ABNORMAL) Hemoglobin A1c (11/22/2021 3:20 AM CDT) Hgb A1C 10.3(H) 4.0 - 5.6 % [facility] ([place]) Estimated Average Glucose 249 mg/dL [facility] ([place]) Comment: The ADA recommends reporting an estimated Average Glucose (eAG) with all Hemoglobin A1c results using the equation derived from a study of 507 normal and diabetic adults. Minority populations were underrepresented and children were not included. (Diabetes Care 31:1143-9582, 2008). The eAG is not equivalent to a fasting glucose. Blood 11/22/2021 3:20 AM CDT 11/22/2021 8:12 AM CDT us Venecia Clarke DO LAB BLOOD ORDERABLE S Final Result Performing Organization Address City/[facility]/ZIP Co de Phone Number [facility] ([place]) [address] [facility] [place] [address] * TSH reflex to free T4 (11/20/2021 6:35 AM CDT) TSH 1.63 0.30 - 4.20 mcIUnit/mL [facility] ([place]) Blood 11/20/2021 6:35 AM CDT 11/20/2021 6:43 AM CDT us Nir Ronquillo MD LAB BLOOD ORDERABLES Final Resu lt [facility] ([place]) [address] [facility] [place] [address] * Pap and High Risk HPV, reflex to Genotyping (07/17/2020 10:20 AM [employer]) Pap test 07/17/2020 10:2 0 AM [employer] 07/18/2020 10:20 AM [employer] Narrative 07/23/2020 2:45 PM [employer] [facility] Department of Pathology [address] [place], [place] [id number] Final Report Patient Name: PENELOPE SHARMA Address: [address] [place] [address] [place] [address] Gender: F : 1990 (Age: 29) Service: Laboratory Location: Lab [facility] #: [id number] Patient Type: Ref Lab Taken: 07/17/2020 Received: 07/18/2020 Accessioned:: 07/19/2020 Reported: 07/23/2020 Physician(s): MD Arlyn Lambert MD Diagnosis: Source of Specimen: SCREENING THIN PREP IMAGED PAP w/ Reflex HPV Specimen Adequacy: - Specimen satisfactory for interpretation; endocervical/transformation zone component absent or insufficient General Category: - Negative for intraepithelial lesion or malignancy Interpretation/Results: - Numerous inflammatory cells present CONNIE Jovel(ASCP) Report Electronically Reviewed and Signed Out By CONNIE Jovel(ASCP) 07/23/2020 14:45:37 Specimen(s) Received: A: SCREENING THIN PREP IMAGED PAP w/ Reflex HPV Clinical History: Contraceptive History: IUD The Pap test is a screening test used to aid in the detection of cervical cancer and its precursors. It should not be the sole means by which malignant and premalignant lesions are diagnosed. Both false negative and false positive results may occur. It also has poor sensitivity for the detection of endometrial lesions and should not be used to evaluate suspected endometrial abnormalities. For these reasons it is most important to obtain Pap tests at regular intervals. The performance characteristics of some immunohistochemical stains, fluorescence in-situ hybridization tests and immunophenotyping by flow cytometry cited in this report (if any) were determined by the Surgical Pathology Department at [facility] as part of an ongoing assistant quality manager program and in compliance with federally mandated regulations drawn from the Clinical Laboratory Improvement Act of 1988 (CLIA '88). Some of these tests rely on the use of analyte specific reagents and are subject to specific labeling requirements by the US Food and Drug Administration. Such diagnostic tests may only be performed in a facility that is certified by the Department of Health and Human Services as a high complexity laboratory under CLIA '88. The FDA has determined that such clearance or approval is not necessary. This test is used for clinical purposes. It should not be regarded as investigational or for research. Nevertheless, federal rules concerning the medical use of analyte specific reagents require that the following disclaimer be attached to the report: This test was developed and its performance characteristics determined by the Surgical Pathology Department [facility]. It has not been cleared or approved by the U. S. Food and Drug Administration. Arlyn Anna MD LAB CYTOLOGY ORDERABL ES Final Result * (ABNORMAL) Lipid panel (12/17/2017 12:10 PM CDT) Cholesterol 154 30 - 200 mg/dL [facility] Comment: Interpretive Data Desirable: <200 mg/dL Borderline high: 200-239 mg/dL High: > or = 240 mg/dL Literature Reference: National Cholesterol Education Program (NCEP) Expert Panel on Detection, Evaluation, and Treatment of High Blood Cholesterol in Adults (Adult Treatment Panel III). Circulation 2004; 110:227. Current interpretive data was last revised on 2015. Triglycerides 93 0 - 150 mg/dL [facility] Comment: Interpretive Data Desirable: < 150 mg/dL Borderline High: 150 - 199 mg/dL High: 200 - 499 mg/dL Very High: > or = 499 mg/dL Literature Reference: See Cholesterol Current interpretive data was last revised on 2015. HDL 34(L) >=40 mg/dL [facility] Comment: Interpretive Data Less than 40 mg/dL - low; A major risk factor for heart disease. Greater than or equal to 60 mg/dL - High; considered protective of heart disease. Literature Reference: See Cholesterol Current interpretive data was last revised on 2015. LDL, calculated 101 10 - 129 mg/dL [facility] Comment: Interpretive Data Optimal: < 100 mg/dL Near Optimal: 100 - 129 mg/dL Borderline High: 130 - 159 mg/dL High: 160 - 189 mg/dL Very high: > or = 190 mg/dL Literature Reference: See Cholesterol Current interpretive data was last revised on 2015. Non-HDL Cholesterol 120 mg/dL [facility] Comment: Interpretive Data When triglycerides are >200 mg/dL, non-HDL C is a secondary target of therapy, with a goal 30 mg/dL higher than the identified LDL-C goal. Reference: See Cholesterol Reference. Current interpretive data was last revised 2015. Blood specimen (specimen) 12/17/2017 12:10 PM CDT 12/17/2017 1:47 PM CDT Narrative [facility] - 12/17/2017 5:47 PM CDT us Julieth Archibald MD LAB BLOOD ORDERABLES Final R esult [facility] Department [place] [address] from Last 3 Months or Most Recently Relevant to Health Maintenance Insurance [facility] AETNA MEDICARE [facility] MEDICARE ADVANTAGE [employer] [facility] MEDICARE ADVANTAGE Advance Directives For more information, please contact: [phone] * Full Code (Latest Code Status on File) Date Activated Date Inactivated Comments 11/20/2021 5:29 AM 11/23/2021 4:02 PM * Full Code Date Activated Date Inactivated Comments 05/18/2019 9:21 AM 05/18/2019 9:22 PM * Full Code Date Activated Date Inactivated Comments 12/17/2017 12:26 PM 12/22/2017 8:46 PM Care Teams Licensed Sales Assistant Relationship Specialty Start Date End Date Alma Trejo MD PCP - General 09/19/20 Dontae Craven MD [address] [address] Referring Physician Endocrinology Diabetes & Metabolism 11/23/21
--- OUTSIDE RECORDS SUMMARY | 2025-06-01 11:04 | XMS_ITS | Encounter Summary ---
Author Organization [facility] Address [address] [place] [address] Phone Care Team Providers Care Meter Shop Supervisor Name Role Phone Osorio, Kalyn TOVAR, COMMISSIONING AGENT Primary Care Provider [phone] Arvind Ovalle MD Unavailable [phone] Reason for Visit * Reason Comments Medication Refill Encounter Details Date Type Department Care Team (Late st Contact Info) Description 05/30/2023 Refill [facility] - Neurology - [place] [address] [place] [id number] Corina Main, DOPE FIRER, [facility] [address] [place] [address] Medication Refill Social History Tobacco Use Types Packs/Day Years Used Date Smoking Tobacco: Never Smokeless Tobacco: Never Alcohol Use Standard Drinks/Week Comments No 0 (1 standard drink = 0.6 oz pur e alcohol) Comments No Sex and Gender Information Value Date Recorded Sex Assigned at Not on file Legal Sex Female 11:05 PM CDT Gender Identity Not on file Sexual Orientation Not on file documented as of this encounter Miscellaneous Notes * Telephone Encounter - Candy Oscar RN - 06/01/2023 9:23 AM CST Medication failed the protocol, provider to review and approve the medication order if appropriate. Requested Prescriptions Pending Prescriptions Disp Refills pregabalin (LYRICA) 150 MG Capsule [Pharmacy Med Name: PREGABALIN 150MG CAPSULES] 180 Capsule Sig: TAKE 1 CAPSULE BY MOUTH TWICE DAILY Not Delegated - Anticonvulsants Excluding Benzodiazepines Protocol Failed - 05/30/2023 6:54 PM Failed - This refill cannot be delegated Passed - Visit with relevant provider in past 12 months or upcoming 90 days Recent Visits No visits were found meeting these conditions. Showing recent visits within past 365 days and meeting all other requirements Future Appointments Date Type Provider Dept 07/22/23 Appointment Arvind Ovalle MD [facility] [place] Showing future appointments within next 90 days and meeting all other requirements ER BUNCHER OR PICKER documented in this encounter Plan of Treatment Upcoming Encounters Date Type Department Care Team (Late st Contact Info) Description 07/23/2025 9:30 AM FLOWER BUNCHER OR PICKER [facility] [address] [place] [address] Arvind Ovalle MD [address] [place] [address] documented as of this encounter Visit Diagnoses Diagnosis Lumbosacral plexopathy Lumbosacral plexus lesions documented in this encounter Care Teams Meter Shop Supervisor Relationship Specialty Start Date End Date Kalyn Osorio APRN, CNP PCP - General Family Medicine 03/24/17 Arvind Ovalle MD [address] [place] [address] Consulting Physician Neurology 03/24/17 documented as of this encounter
--- OUTSIDE RECORDS SUMMARY | 2025-06-01 11:04 | XMS_ITS | Encounter Summary ---
Author Organization [facility] Address [address] [facility] [place] [address] Care Team Providers Care Software Quality Test Engineer Name Role Phone Leslie Humphries RN Unavailable [phone] Kalyn Osorio APRN-COLLATERAL CLERK Primary Care Provider [phone] Danuta Emmanuel MD Unavailable Reason for Visit * Reason Comments Refill Request Encounter Details Date Type Department Care Team (Late st Contact Info) Description 12/05/2024 Refill [facility] 5E ANTEPARTUM/MOTHER BABY [address] [place] [address] Sofi Pinon MD [address] [facility] [place] [address] Refill Request Social History Tobacco Use Types Packs/Day Years Used Date Smoking Tobacco: Former Cigarettes 0.3 0.5 0 12/06/2022 - 06/07/2023 Smokeless Tobacco: Never Alcohol Use Standard Drinks/Week Comments No 0 (1 standard drink = 0.6 oz pur e alcohol) Overall Financial Resource Strain (CARDIA) Archiee r Date Recorded How hard is it for you to pa y for the very basics like food, housing, medical care, and heating? Not hard at all 05/01/2024 PHQ-2 Answer Date Recorded Patient Health Questionnaire-2 Score 3 12/20/2023 [facility] [place] [facility] - Occupational Stress Questionnaire Answer Date Recorded Do you feel stress - tense, restless, nervous, or anxious, or unable to sleep at night because your mind is troubled all the time - these days? Not at all 05/01/2024 Hunger Vital Sign Answer Date Recorded Within the past 12 months, y ou worried that your food would run out before you got the money to buy more. Never true 05/01/20 24 Within the past 12 months, t he food you bought just didn't last and you didn't have money to get more. Never true 05/01/2024 PRAPARE - Transportation Answer Date Re corded In the past 12 months, has l ack of transportation kept you from medical appointments or from getting medications? No 04/08 In the past 12 months, has l ack of transportation kept you from meetings, work, or from getting things needed for daily living? No 05/01/2024 Housing Stability Vital Sign Answer Olaf e [...] place to sleep or slept in a prison (including now)? No 03/17/2024 Sel[place] Depression Scale Answer Date Recorded [place] Depression Scale Total 4 06/14/2024 The thought of harming myself has occurred to me . Never 06/14/2024 Housing Stability Vital Sign Answer Olaf e Recorded In the last 12 months, was t here a time when you were not able to pay the mortgage or rent on time? No 05/01/2024 Number of Times Moved in the Last Year Not on fi le 05/01/2024 At any time in the past 12 m [facility], were you homeless or living in a prison (including now)? No 05/01/2024 Education Answer Date Recorded What is the highest level of school you have completed or the highest degree you have received? High school graduate 11/30/2023 Comments No Sex and Gender Information Value Date Recorded Sex Assigned at Not on file Legal Sex Female 9:41 AM CASTER INVESTMENT CASTING Gender Identity Not on file Sexual Orientation Not on file Occupation Industry Job Start Date Job End Date Medically disabled Not on file Not on file Not on fi le documented as of this encounter Functional Status * Is person deaf or have serious hearing difficulty? Answer Date of Assessment Author No 05/01/2024 9:11 AM Coco Boogie RN * Is person blind or have serious difficulty seeing? Answer Date of Assessment Author No 05/01/2024 9:11 AM Coco Boogie RN * Does person have serious difficulty walking/climbing stairs? Answer Date of Assessment Author No 05/01/2024 9:11 AM Coco Boogie RN * Does person have difficulty dressing/bathing? Answer Date of Assessment Author No 05/01/2024 9:11 AM Coco Boogie RN * Does person have difficulty doing errands alone? Answer Date of Assessment Author No 05/01/2024 9:11 AM Coco Boogie RN documented as of this encounter Mental Status * Does person have difficulty concentrating/remembering/making decisions? Answer Entry Date Author No 05/01/2024 9:11 AM Coco Boogie RN documented in this encounter Plan of Treatment Not on file documented as of this encounter Goals Goal Patient Goal Type Associated Problems Recent Progress Patient-Stated? Author SSAl Lifestyle: Have labs drawn Lifestyle Not on track(01/10/20 14 10:44 AM CDT) No Demetria Arora HEMOGLOBIN A1C < 7.0 Result Component 6.3(03/17/2024 4:01 AM CDT) No John Cole documented as of this encounter Visit Diagnoses Diagnosis Type 1 diabetes mellitus affecting , antepartum (HCC) documented in this encounter Care Teams Software Quality Test Engineer Relationship Specialty Start Date End Date Kalyn Osorio APRN-SHAMIKA [address] [place] [address] PCP - General Nurse Practitioner Family 08/15/18 Leslie Humphries, KEO Auto [employer] Handler 05/16/15 Danuta Emmanuel MD [address] [facility] [address] [place] [address] Primary Prepress Specialist Obstetrics and Gynecology 11/29/23 documented as of this encounter
--- OUTSIDE RECORDS SUMMARY | 2025-06-01 11:04 | XMS_ITS | Encounter Summary ---
Author Organization [facility] Address [address] [place] [address] Phone Care Team Providers Care Realty Specialist Name Role Phone Osorio, Kalynaxel TOVAR CNP Primary Care Provider [phone] Arvind Ovalle MD Unavailable [phone] Reason for Visit * Reason Comments Medication Refill Encounter Details Date Type Department Care Team (Late st Contact Info) Description 09/21/2022 Refill [facility] - [facility]rology [facility] [address] [place] [address] Arvind Ovalle MD [address] [place] [address] Medication Refill Social History Tobacco Use Types [...] Telephone Encounter - Candy Oscar RN - 09/21/2022 8:48 AM CDT Medication failed the protocol, provider to review and approve the medication order if appropriate. Requested Prescriptions Pending Prescriptions Disp Refills pregabalin (LYRICA) 150 MG Capsule [Pharmacy Med Name: Pregabalin 150 MG Oral Capsule] 180 Capsule Sig: TAKE 1 CAPSULE BY MOUTH TWICE DAILY Not Delegated - Anticonvulsants Excluding Benzodiazepines Protocol Failed - 09/21/2022 8:44 AM Failed - This refill cannot be delegated Passed - Visit with relevant provider in past 12 months or upcoming 90 days Recent Visits Date Type Provider Dept 02/16/22 Office Visit Arvind Ovalle MD [facility] Showing recent visits within past 365 days and meeting all other requirements Future Appointments No visits were found meeting these conditions. Showing future appointments within next 90 days and meeting all other requirements documented in this encounter Plan of Treatment Upcoming Encounters Date Type Department Care Team (Late st Contact Info) Description 07/23/2025 9:30 AM SUPERVISOR ASSEMBLY ROOM Office Visit [facility] [address] [place] [address] Arvind Ovalle MD [address] [place] [address] documented as of this encounter Visit Diagnoses Diagnosis Lumbosacral plexopathy Lumbosacral plexus lesions documented in this encounter Care Teams Realty Specialist Relationship Specialty Start Date End Date Kalyn Osorio APRN, CNP PCP - General Family Medicine 03/24/17 Arvind Ovalle MD [address] [place] [address] Consulting Physician Neurology 03/24/17 documented as of this encounter
--- OUTSIDE RECORDS SUMMARY | 2025-06-01 11:04 | XMS_ITS | Encounter Summary ---
Author Organization [facility] Address [address] [facility] [facility] [address] Care Team Providers Care Office Supervisor Name Role Phone Vernon Phoenix DO Primary Care Provider Trinh Meléndez MD Primary Care Provider [phone] Leslie Humphries RN Unavailable [phone] Kalyn Osorio MAT MACHINE OPERATOR-PICKLING SOLUTION MAKER Primary Care Provider [phone] Unknown, Provider Primary Care Provider Unavaila Kalyn Fabian APRN-PICKLING SOLUTION MAKER Primary Care Provider [phone] Danuta Emmanuel MD Unavailable Encounter Details Date Type Department Care Team (Late st Contact Info) Description 05/19/2013 Telephone [facility] Women's Health Maternal & Care [address] [place] [address] Brigitte Feliz, [facility] [place] [address] [place] [id number] Social History Tobacco Use Types Packs/Day Years Used Date Smoking Tobacco: Former Cigarettes 0.3 0.5 1 - 12/05/2012 Smokeless Tobacco: Never Alcohol Use Standard Drinks/Week Comments No 0 (1 standard drink = 0.6 oz pur e alcohol) Comments Yes Sex and Gender Information Value Date Recorded Sex Assigned at Not on file Legal Sex Female 9:41 AM TENT ASSEMBLER Gender Identity Not on file Sexual Orientation [...] documented as of this encounter Care Teams Office Supervisor Relationship Specialty Start Date End Date Vernon Phoenix DO PCP - General Family Medicine 11/30/12 06/28/13 Trinh Davis MD PCP - General Obstetrics and Gynecology 06/29/13 10/05/13 Kalyn Osorio APRN-PICKLING SOLUTION MAKER [address] [place] [address] PCP - General Nurse Practitioner Family 01/05/17 10/24/17 Unknown, Provider [address] [place] [address] PCP - General 10/25/17 08/14/18 Kalyn Osorio APRN-PICKLING SOLUTION MAKER [address] [place] [address] PCP - General Nurse Practitioner Family 08/15/18 Leslie Humphries, KEO Blender/Braze Applicator 05/16/15 Dnauta Emmanuel MD [address] [facility] [place] [id number] Primary Grocery Store Clerk Obstetrics and Gynecology 11/29/23 documented as of this encounter
--- OUTSIDE RECORDS SUMMARY | 2025-06-01 11:04 | XMS_ITS | Clinical Summary ---
Author Organization [facility] Address [address] [place] [address] Care Team Providers Care Criminal Records Technician Name Role Phone Leslie Humphries RN Unavailable [phone] Kalyn Osorio APRN-SENIOR TECHNICAL PROGRAM MANAGER Primary Care Provider [phone] Danuta Emmanuel MD Unavailable Source Comments [facility],non-owned Affiliates and Associated Physician Practices is amultiple site organization consisting of ambulatory clinics and hospital sitesin [place], [place], [place] and [place]. This disclosure is being madepursuant to the Care Everywhere program and may not contain all information available regarding this patient. Last updated 18.[facility] Allergies Active Allergy Reactions Criticality Noted Date Comments Cyclobenzaprine 06/21/2015 Tongue swelling Medications * This document contains information received from the source organization and may not represent a complete record from that organization. * Be aware that medications may not be up to date on this document. Alwaysverify current medications with the patient. albuterol HFA (PROVENTIL;VENTOLI N;PROAIR) 108 (90 BASE) MCG/ACT inhaler Inhale 2 (two) puffs by mouth every 6 hours as needed Active cetirizine (ZYRTEC ALLERGY) 10 MG gel capsule Active pregabalin (LYRICA) 150 MG capsule Take 1 (one) capsule by mouth once daily 11/16/19 21 Active fluticasone propionate (Flonase) 50 MCG/ACT nasal spray SHAKE LIQUID AND USE 1 SPRAY IN EACH NOSTRIL TWICE DAILY 04/22/20 23 Active Insulin Pen Needle (BD Pen Needle Jenna 2nd Gen) 32G X 4 MM MISCIndications:Ty pe 1 diabetes mellitus with diabetic polyneuropathy (HCC) Use 1 Each 4 times daily 400 Each 3 07/08/19 24 Active Continuous Glucose Sensor (Dexcom G7 Sensor) MISCIndications:Ty pe 1 diabetes mellitus affecting , antepartum (HCC),Type 1 diabetes mellitus with diabetic neuropathy, with long-term current use of insulin ([facility]),Type 1 diabetes mellitus with diabetic polyneuropathy ([facility]) Use 1 Cartridge every 10 days 9 Each 3 12/01/19 24 Active glucagon (Glucagen) injectionIndicatio ns:Type 1 diabetes mellitus with diabetic polyneuropathy ([facility]) Inject 1 (one) mg into muscle as needed 3 Each 1 01/31/20 24 Active levothyroxine (Synthroid) 25 MCG tablet Take 1 (one) tablet by mouth once daily 30 tablet 1 02/01/20 24 Active DULoxetine (Cymbalta) 60 MG capsuleIndications :Major Depressive Disorder Take 1 (one) capsule by mouth once daily Reasons: Major Depressive Disorder 30 capsule 1 03/20/20 24 Active budesonide (Pulmicort Flexhaler) 180 MCG/ACT inhaler Inhale 1 (one) puff by mouth 2 times daily 1 Each 2 03/21/20 24 Active ferrous sulfate 325 (65 FE) MG tablet Take 1 (one) tablet by mouth once daily 100 tablet 4 03/22/20 24 Active Additional Information Patient not taking.Reason: needs refilled, Reported on 10/11/2024 NovoLOG FLEXPEN penIndications:Typ e 1 diabetes mellitus affecting , antepartum ([facility]) 02/01/20 24 Active Insulin Infusion Pump (T:slim X2 Basal-IQ Pump) DEVIIndications:Ty pe 1 diabetes mellitus affecting , antepartum ([facility]) Act papito Cholecalciferol (Vitamin D) 50 MCG (1999) capsuleIndications :Vitamin D Deficiency Take 1 (one) capsule by mouth once daily Reasons: Vitamin D Deficiency 90 capsule 3 04/25/20 24 Active nystatin (Mycostatin) 426511 UNIT/GM powder Apply to affected area 2 times daily 60 g 06/14/19 25 Active HumaLOG 100 UNIT/ML vial Up to 150 units TDD via insulin pump 150 mL 3 10/12/19 25 Active Active Problems Problem Noted Date Diagnosed Date care following delivery 01/2025 History of pre-eclampsia 06/14/2024 History of delivery of macrosomal infant 025 Overview (06/14/2024): G1: 9lbs 12oz G2: 7lbs 14.6oz 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 Uses self-applied continuous glucose monitoring device 12/07/2023 Neuropathy due to type 1 diabetes mellitus 11/30 Overview (12/01/2023): Bilateral lower extremities, dx 2017, wears braces due to weakness, pain control with Lyrica (pregablin), tingling, numbness, difficulty walking Disability due to neurological disorder 12/01/19 24 Overview (12/01/2023): Due to neuropathy History of low transverse section 11/29 Overview (06/14/2024): - G1 (2013): for GHTN/PEC w/ concern for macrosomia @ 37.0wks - G2 (04/2024): rLTCS - Mild amount of fascial to rectus muscle disease. Mild amount of intraperitoneal adhesions to uterus. Peritoneal adhesions from uterus to bladder. Recurrent major depressive disorder, in partial remission 05/15/2019 Overview (12/01/2023): Dx age 20, managed by her PMD, on duloxetine Panic disorder 05/15/2019 Overview (12/01/2023): Dx age 24, managed by her PMD, on duloxetine Vitamin D deficiency 12/17/2017 Overview (12/04/2023): Level = 19 Obese 04/17/2016 Type 1 diabetes mellitus wit h diabetic neuropathy, with long-term current use of insulin 05/23/2012 Overview (03/24/2024): Diagnosed age 5 Seasonal allergies Overview (12/01/2023): Spring and fall Asthma Resolved Problems Problem Noted Date Diagnosed Date Resolved Date Iron deficiency anemia during 03/31/2024 06/14/2024 Request for sterilization 03/24/2024 COVID-19 affecting in second trimester 03/24/2024 06/14/2024 Overview (03/24/2024): Dx 02/15 admission for DKA Shortness of breath 02/16/2024 03/24/20 24 Elevated blood pressure affe cting in second trimester, antepartum 01/25/2024 06/14/19 25 Supervision of high risk pre gnancy, antepartum 12/07/2023 06/14/2024 Mental disorder affecting pr egnancy: MDD, Panic disorder 12/07/2023 06/14/2024 Overview (03/24/2024): Following with maternal mental health care team; medications were increased, now on Cymbalta 60 mg/d History of pre-eclampsia 12/07/2023 Insulin pump titration 12/07/202312/06 Vitamin D insufficiency 12/04/2023 07/0 07/2023 Hx of preeclampsia, prior pr egnancy, currently 12/01/2023 06/14/2024 Overview (03/24/2024): Mild gestational hypertension per discharge summary, on ASA ppx Asthma affecting , antepartum 12/01/2023 06/14/2024 Overview (12/01/2023): Dx age 12, triggered by cold, panic - uses albuterol q 3 days in winter at its worst Former trivial cigarette smo ker (less than 1 per day) 12/01/2023 12/07/2023 Overview (12/04/2023): Quit early 2023 Rash 12/01/2023 04/21/2024 Overview (12/01/2023): Arms, face, chest, seen by 3 dermatologists, 2018 - 2 skin bx, no specific dx. Better in , no longer itchy Nausea/vomiting in 12/01/2023 01/25/2024 Overview (12/01/2023): Severe in September, now still has nausea Type 1 diabetes mellitus aff ecting , antepartum 11/30/2023 06/14/2024 Overview (12/04/2023): Low C-peptide H/O macrosomia in infant in prior , currently 11/30/2023 06/14/2024 Overview (03/24/2024): 4281 g at 37 weeks Maternal morbid obesity, antepartum 11/30/2023 06/14/2024 Overview (11/30/2023): BMI 48.3 pre- Diabetic ketoacidosis withou t coma associated with type 1 diabetes mellitus 05/15/2019 11/30/2023 Overview (04/28/2021): Last Assessment & Plan: Due to pump site failure. Anion gap 33 on arrival with glucose 386 (was reportedly 440 at home). Symptoms improving with insulin drip. Monitor BMP q.4 while insulin drip. Monitor electrolytes and replete as necessary. When anion gap closes, can administer subcutaneous insulin, start p.o. diet, and overlap with insulin drip for 2 hours. unit educator consulted. Encounter for fitting and ad justment of insulin pump 12/20/2017 12/01/2023 Overview (04/28/2021): Last Assessment & Plan: Insulin pump re-started 12/19 Safe to continue insulin pump Basal: 0000-1.3, 0800-1.65, 2300-1.2, ICR 1:5, ISF 20, Target 90-120, MARY 4 Elevated TSH 12/17/2017 12/04/2023 Overview (12/04/2023): Elevated TSH of 7 on 12/17/17. Patient is currently under stress. Recommend repeating her thyroid function test in the 4-6 weeks Tibia fracture 12/16/2017 11/30/2023 Closed displaced spiral frac ture of shaft of left tibia 12/16/2017 11/30/2023 Overview (04/28/2021): Last Assessment & Plan: Same level mechanical fall. TSH 7 felt to be euthyroid sick can be checked as outpatient PTH normal Vit D low: please follow supplementation as below We would recommend outpatient bone density and follow-up with primary mortgage branch manager Urinary tract infection without hematuria 05/16/2015 11/30/2023 Macrosomia affecting management of mother 06/30/2013 08/01/2013 Placenta previa antepartum 06/30/2013 0 11/30/2023 Supervision of other high-risk 04/14/2013 08/01/2013 Overview (04/14/2015): Maternal migraine, history of 05/23/2012 06/14/2024 Overview (12/01/2023): Onset as teenager, infrequent, sound and light sensitivity, last hours to days, relieved by sleep Ingrown right big toenail 02/11/2011 Infection of toe 02/11/2011 05/23/2012 Toe pain, right 02/11/2011 05/23/2012 Vomiting 09/24/2009 12/07/2023 Left upper quadrant abdominal tenderness 09/24/2009 11/30/2023 Headache 09/24/2009 12/07/2023 Cholelithiases 09/24/2009 11/30/2023 Immunizations Immunization Administration Dates Next Due DTaP VACCINE IM (6wk-6yrs) 03/19/1998,,03/31/1993, 3,1992 FLU, HISTORIC VACCINE 05/06/2005,03/27/2003 HEP A PED/ADULT VACCINE 02/22/2008 HEP B VACCINE, PED/ADOL 06/30/1993,1992, HIB VACCINE 12/15/1993, 3,01/27/1993, 3 MENINGOCOCCAL ACWY (MCV4P) VAC IM 03/05/2008 MMR 05/05/2024 MMR VACCINE 03/19/1998,12/15/1993 POLIO IPV 03/19/1998, 4,01/27/1993, 3 RSV ABRYSVO PREG OR 60y+ 0.5mL 03/21/2024 Rho D Immune Globulin 05/02/2024, 024,02/21/2024(Deferred: Discontinued by physician) TD, HISTORIC VACCINE 06/07/2008 TDAP (7yrs+) 05/02/2024(),02/21/2024,11/27/19 23 TDAP, HISTORIC VACCINE 08/16/2018,02/22/2008 Family History Medical History Relation Name Comments Bipolar Disorder Brother Cystic Fibrosis Cousin 1 Sickle Cell Anemia Cousin 2 GI Disorder Father Hyperlipidemia Father Hypertension Father Diabetes Maternal Aunt CAD (Coronary Artery Disease) Maternal Grandfather Cancer - Breast Maternal Grandmother Cancer Mother skin Hypertension Mother Breast Cancer after age 50 or unknown Paternal Grandmo ther Cancer - Breast Paternal Grandmother Diabetes - Gestational Sister Relation Name Status Comments Brother Other Cousin 1 Cousin 2 Alive Father Alive Maternal Aunt Maternal Grandfather Maternal Grandmother Mother Alive Paternal Grandmother Sister Social History Tobacco Use Types Packs/Day Years Used Date Smoking Tobacco: Former Cigarettes 0.3 0.5 0 12/06/2022 - 06/07/2023 Smokeless Tobacco: Never Tobacco Cessation:Counseling Given: Not Answered Alcohol Use Standard Drinks/Week Comments No 0 (1 standard drink = 0.6 oz pur e alcohol) Overall Financial Resource Strain (CARDIA) Answe r Date Recorded How hard is it for you to pa y for the very basics like food, housing, medical care, and heating? Not hard at all 05/01/2024 PHQ-2 Answer Date Recorded Patient Health Questionnaire-2 Score 3 12/20/2023 [facility] - Occupational Stress [...] place to sleep or slept in a residential (including now)? No 03/17/2024 [place] Depression Scale Answer Date Recorded [place] Depression Scale Total 4 06/14/2024 The thought [...] any time in the past [address] [facility], were you homeless or living in a residential (including now)? No 05/01/2024 Education Answer Date Recorded What is the highest level of school you have completed or the highest degree you have received? High school graduate 11/30/2023 Comments No Sex and Gender Information Value Date Recorded Sex Assigned at Not on file Legal Sex Female 9:41 AM LARGE ANIMAL VETERINARIAN Gender Identity Not on file Sexual Orientation Not on file Occupation Industry Job Start Date Job End Date Medically disabled Not on file Not on file Not on fi le Last Filed Vital Signs Vital Sign Reading Time Taken Comments Blood Pressure 124/90 10/11/2024 1:38 PM CDT Pulse 110 10/11/2024 1:38 PM CDT Temperature 35.9 C (96.6 F) 06/14/2024 1:11 PM LARGE ANIMAL VETERINARIAN Respiratory Rate 16 06/14/2024 1:11 PM LARGE ANIMAL VETERINARIAN Oxygen Saturation 98% 10/11/2024 1:38 PM CDT Inhaled Oxygen Concentration - - Weight 136.6 kg (301 lb 3.2 oz) 10/20/2024 1:00 PM CDT Height 165.1 cm (5' 5) 10/20/2024 11:0 0 AM CDT Body Mass Index 50.12 10/20/2024 11:00 AM CDT Plan of Treatment Health Maintenance Due Date Last Done Comments PNEUMOCOCCAL VACCINE (1 of 2 - PCV) 09/11/2011 PAP SMEAR 11/09/2016 11/09/2013 (Prev iously completed) HPV VACCINE (1 - 3-dose SCDM series) 09/11/2019 DIABETES-FOOT EXAM WITH MONOFILAMENT 07/01/2023 07/01/2022, 01/09/2014 DEPRESSION SCREENING 06/07/2024 12/20/2023, 04/01/2022, 11/25/2021 DIABETES - URINE PROTEIN SCREENING 06/07/2024 05/01/2024, 03/17/2024, 02/16/2024, Additional history exists MEDICARE AWV CALENDAR YEAR 2024 DIABETES RETINOPATHY SCREENING 11/07/2024 11/07/2022, 10/10/2011 (Previously completed) COVID-19 VACCINE ( - 2024- season) 2025 INFLUENZA VACCINE (#1) 2025 05/06/2005, 2002 DIABETES-HGB A1C 04/13/2025 10/11/2024, 01/2025, 04/18/2024, Additional history exists DIABETES-SERUM CREATININE 05/02/20252023, 05/01/2024, 03/18/2024, Additional history exists DTAP/TDAP/TD VACCINES (11 - Td or Tdap) 02/20/2034 02/21/2024, 11/26/2022, 08/16/2018, Additional history exists ZOSTER VACCINE (1 of 2) 2042 HEPATITIS B VACCINE Completed 06/30/1993, 1992, 1992 HIB VACCINE Completed 12/15/1993, 03/08, 01/27/1993, Additional history exists MENINGOCOCCAL GROUPS A/C/Y/W VACCINE Aged Out 03/05/2008 No longer eligible based on patient's age to complete this topic HEPATITIS C SCREENING Completed 11/30/2023 HIV SCREENING Completed 03/21/2024, 11/06, 02/02/2013, Additional history exists Respiratory Syncytial Virus (RSV) Vaccine Pt: or over 60 yrs Discontinued 03/21/2024 MENINGOCOCCAL (Group B) VACCINE SHARED DECISION-MAKING Aged Out No longer eligible based on patient's age to complete this topic Goals Goal Patient Goal Type Associated Problems Recent Progress Patient-Stated? Author SSAl Lifestyle: Have labs drawn Lifestyle Not on track(01/10/20 10:44 AM CDT) No Demetria Arora HEMOGLOBIN A1C < 7.0 Result Component 6.3(03/17/2024 4:01 AM CDT) No John Cole Procedures Procedure Name Priority Date/Time Associated Diagnosis Comments HEMOGLOBIN A1C - POINT OF CARE (AMB) Routine 10/11/2024 2:11 PM CDT Type 1 diabetes mellitus with diabetic polyneuropathy (HCC) COMPREHENSIVE METABOLIC PANEL AM Draw 05/02/2024 9:21 AM LARGE ANIMAL VETERINARIAN PROTEIN CREATININE RATIO URINE RANDOM PNL Routine 05/01/2024 11:49 AM LARGE ANIMAL VETERINARIAN HIV-1 HIV-2 ANTIBODY + HIV P24 AG PANEL Routine 03/21/2024 Type 1 diabetes mellitus affecting , antepartum Neuropathy due to type 1 diabetes mellitus Supervision of high risk , antepartum HEPATITIS C AB W/RFLX TO HCV RNA QN PCR 11/30/2023 1:36 PM CDT Type 1 diabetes mellitus affecting in second trimester, antepartum EYE EXAM 11/07/2022 from Last 3 Months or Most Recently Relevant to Health Maintenance Results * HEMOGLOBIN A1C - POINT OF CARE (AMB) (10/11/2024 2:11 PM CDT) Pathologist [facility] Hemoglobin A1c POCT 6.4 % [facility] Expiration Date 11/24/2025 [facility] Lot # [id number] [facility] QC Verified Yes Yes [facility] Blood BLOOD SPECIMEN / Unknown 10/11/2024 2:11 PM CDT Anastasia Segundo PLANT HEALTH MANAGER-SENIOR TECHNICAL PROGRAM MANAGER LAB - POINT OF CARE [place] Final Result [facility] [address] [facility] [address] [phone] * (ABNORMAL) COMPREHENSIVE METABOLIC PANEL (05/02/2024 9:21 AM LARGE ANIMAL VETERINARIAN) Pathologist [facility] Glucose 65(L) 70 - 99 mg/dL 05/02/2024 10:12 AM LARGE ANIMAL VETERINARIAN [facility] Sodium 140 136 - 145 mmol/L 05/02/2024 10:12 AM LARGE ANIMAL VETERINARIAN [facility] Potassium 4.1 3.5 - 5.1 mmol/L 05/02/2024 10:12 AM [facility] [[email or web address]] [facility] Chloride 109(H) 98 - 107 mmol/L 05/02/2024 10:12 AM LARGE ANIMAL VETERINARIAN [facility] CO2 24 22 - 29 mmol/L 05/02/2024 10:12 AM [facility] [[email or web address]] [facility] Calcium 9.1 8.4 - 10.4 mg/dL 05/02/2024 10:12 AM LARGE ANIMAL VETERINARIAN [facility] Anion Gap 7 6 - 16 mmol/L 05/02/2024 10:12 AM [facility] [[email or web address] BUN 11 5.3 - 18.7 mg/dL 05/02/2024 10:[address] [facility] Creatinine 0.61 0.57 - 1.11 mg/dL 05/02/2024 10:[address] [facility] Alkaline Phosphatase 237(H) 40 - 150 U/L 05/02/2024 10:[address] [facility] ALT 45 0 - 55 U/L 05/02/2024 10:[address] [facility] AST 52(H) 5 - 34 U/L 05/02/2024 10:[address] [facility] Protein Total 6.1(L) 6.4 - 8.3 gm/dL 05/02/2024 10:[address] [facility] Albumin 1.9(L) 3.4 - 5.0 gm/dL 05/02/2024 10:[address] [facility] Bilirubin Total 0.3 0.2 - 1.2 mg/dL 05/02/2024 10:[address] [facility] eGFR by CKD-EPI >90 >=90 mL/min/1.7 3 m2 05/02/2024 10:[address] [facility] Blood BLOOD SPECIMEN / Unknown Lab Venipuncture / Unknown 05/02/2024 9:21 AM LARGE ANIMAL VETERINARIAN 05/02/2024 9:41 AM [facility] [[email or web address]] us Trinh Davis MD LAB - CHEMISTRY ORDERABLES Final Result Performing Organization Address City/State/[facility] Co de Phone Number [facility] [address] [place], [place] [id number] * (ABNORMAL) PROTEIN CREATININE RATIO URINE RANDOM PNL (05/01/2024 11:49 AM [facility] [[email or web address]]) Protein Urine 69.4(H) <11.9 mg/dL 05/01/2024 12:[address] [facility] Creatinine Urine 235.24 mg/dL 05/01/2024 12:[address] [facility] Protein/Creatin ine Ratio Urine 0.30 05/01/2024 12:[address] [facility] Urine URINE SPECIMEN OBTAINED BY CLEAN CATCH PROCEDURE / Unknown Collection / Unknown 05/01/2024 11:49 AM LARGE ANIMAL VETERINARIAN 05/01/2024 12:16 PM LARGE ANIMAL VETERINARIAN us Trinh Davis MD LAB - URINE CHEMISTRY ORDER MEG Final Result [facility] [address] [place] [address] * HIV-1 HIV-2 ANTIBODY + HIV P24 AG PANEL (03/21/2024) Pathologist [facility] HIV Screen 4th Generation w Reflex NON-REACT PAPITO NON-REACT PAPITO [facility] Comment: HIV-1 antigen and HIV-1/HIV-2 antibodies were not detected. There is no laboratory evidence of HIV infection. PLEASE NOTE: This information has been disclosed to you from records whose confidentiality may be protected by state law. If your state requires such protection, then the state law prohibits you from making any further disclosure of the information without the specific written consent of the person to whom it pertains, or as otherwise permitted by law. A general authorization for the release of medical or other information is NOT sufficient for this purpose. For additional information please refer to http://education.SageMetrics/faq/QEO343 (This link is being provided for informational/ educational purposes only.) The performance of this assay has not been clinically validated in patients less than 2 years old. Test Performed at: [facility] [id number] [place] [address] JAZ FISCHER MD Blood BLOOD SPECIMEN / Unknown 03/21/2024 03/21/2024 12:12 PM CDT Carrie Napoles MD LAB - CHEMISTRY ORDERA BLES Final Result [facility] [id number] [place] [address] * HEPATITIS C AB W/RFLX TO HCV RNA QN PCR (11/30/2023 1:36 PM CDT) Hepatitis C Antibody NON-REACTI VE NON-REACT PAPITO [facility] Comment: HCV antibody was non-reactive. There is no laboratory evidence of HCV infection. In most cases, no further action is required. However, if recent HCV exposure is suspected, a test for HCV RNA (test code 30862) is suggested. For additional information please refer to http://education.Th[employer]r.[employer] Devices/faq/DVR37g8 (This link is being provided for informational/ educational purposes only.) Test Performed at: [facility] [id number] [place] [address] JAZ FISCHER MD 11/30/2023 1:36 PM CDT 11/30/2023 1:39 PM CDT us Carrie Napoles MD LAB - CHEMISTRY ORDERA BLES Final Result [facility] [id number] [place] [address] * EYE EXAM (11/07/2022) Anatomical Region Laterality Modality Other 11/07/2022 Narrative 11/07/2022 Ordered by an unspecified provider. us Scanned Document SCANNING ONLY Final Result from Last 3 Months or Most Recently Relevant to Health Maintenance Insurance [facility] [employer] UHC MANAGED MEDICARE ADV MEDICAID - [place] [facility] MANAGED MEDICARE ADV Advance Directives * Full Code (Latest Code Status on File) Date Activated Date Inactivated Comments 05/01/2024 9:04 AM 05/05/2024 1:07 PM * Full Code Date Activated Date Inactivated Comments 03/17/2024 5:16 AM 03/19/2024 5:28 PM * Full Code Date Activated Date Inactivated Comments 02/16/2024 7:59 PM 02/22/2024 2:38 PM * Full Code Date Activated Date Inactivated Comments 02/16/2024 3:27 PM 02/16/2024 7:59 PM * Full Code Date Activated Date Inactivated Comments 01/25/2024 5:12 PM 01/31/2024 5:07 PM Care Teams Criminal Records Technician Relationship Specialty Start Date End Date Kalyn Osorio APRN-SENIOR TECHNICAL PROGRAM MANAGER [address] [place] [address] PCP - General Nurse Practitioner Family 08/15/18 Leslie Humphries, RN Etl Architect 05/16/15 Danuta Emmanuel MD [address] [place] [address] Primary Bicycle Mechanic Obstetrics and Gynecology 11/29/23
--- OUTSIDE RECORDS SUMMARY | 2025-06-01 11:04 | XMS_ITS | Data Portability ---
Author Organization [facility] Address [address] [place] [address] [place] [address] Assessment No assessment recorded. Plan of Treatment Reminders Order Date Submit Date Provider Last Modified By Organization Details Last Modified Time Details Appointments None recorded. Lab drug screen, urine 2023 024 [email or web address] [facility], [address], [place], [address], 4 16:55:33 Referral None recorded. Procedures None recorded. Surgeries None recorded. Imaging US, obstetric, nuchal translucenc y 2023 024 [email or web address] [facility], [address], [place], [address], 4 21:18:37 Medication Orders None recorded. Patient TargetsNo targets recorded. Patient InstructionsNo instructions recorded. Reason for Referral None Reported. Results Created Date Observation Date Name Description Value Unit Range Abnormal Flag Note LastModifiedBy Organization Detail LastModifiedTime 11/17/1911/17/2023 CT/GC AND TRICH OMONA S VAGIN ANN MARIE (RRNA ), URINE chlamydia trachomatis, PCR Negati ve negati ve Not Available [facility] (Lab) [address], [place], [address], 11/18/2023 13:10:09 11/17/19 24 11/17/2023 CT/GC AND TRICH OMONA S VAGIN ANN MARIE (RRNA ), URINE neisseria gonorrhoeae, PCR Negati ve negati ve Not Available [facility] (Lab) [address], [place], [address], 11/18/2023 13:10:09 11/17/19 24 11/17/2023 CT/GC AND TRICH OMONA S VAGIN ANN MARIE (RRNA ), URINE trichomonas vaginalis ribosomal RNA (rrna) Negati ve negati ve Not Available [facility] (Lab) [address], [place], [address], 11/18/2023 13:10:09 12/01/19 24 12/01/2023 CBC W/DIF F CBC and differential CANCEL LED Store d at [facility] e Not Available [facility] (Lab) [address], [place], [address], 12/03/2023 14:26:04 12/01/19 24 12/01/2023 RPR SCREE N, REFLE X TITER /CONF IRMAT ION syphilis,RPR screen,refle x titer/confir mation(cdh/d ch/kh/pH) CANCEL LED Store d at [facility] e Not Available [facility] (Lab) [address], [place], [address], 12/03/2023 14:26:06 12/01/19 24 12/01/2023 HEPAT ITIS C ANTIB ANJELICA SCREE N, REFLE X TO CONFI RMATI ON hepatitis C antibody, reflex confirmation ([place]/ central/pH) CANCEL LED Store d at [facility] e Not Available [facility] (Lab) [address], [place], [address], 12/03/2023 14:26:07 12/01/19 24 12/01/2023 HIV 1/2 ANTIG EN/AN TIBOD Y, REFLE X CONFI RMATI ON HIV antigen/anti body,reflex confirmation CANCEL LED Store d at [facility] e Not Available [facility] (Lab) [address], [place], [address], 12/03/2023 14:26:09 12/01/19 24 12/01/2023 HEPAT ITIS B SURFA CE ANTIG EN hepatitis B surface antigen CANCEL LED Store d at [facility] e Not Available [facility] (Lab) [address], [place], [address], 12/03/2023 14:27:19 12/01/19 24 12/01/2023 RUBEL LA IGG ANTIB ANJELICA, QUANT rubella IgG antibody, quantitative (west/north/ central) CANCEL LED Store d at [facility] e Not Available [facility] (Lab) [address], [place], [address], 12/03/2023 14:27:20 12/01/19 24 12/01/2023 TYPE/ RH/SC REEN type/Rh/scre en CANCEL LED Store d at [facility] e Not Available [facility] (Lab) [address], [place], [address], 12/03/2023 14:27:22 12/01/19 24 12/01/2023 HEMOG LOBIN A1C hemoglobin A1C CANCEL LED Store d at [facility] e Not Available [facility] (Lab) [address], [place], [address], 12/03/2023 14:28:33 12/01/19 24 12/01/2023 CULTU RE: URINE culture: urine CANCEL LED Store d at [facility] e Not Available [facility] (Lab) [address], [place], [address], 12/03/2023 14:28:35 12/01/19 24 12/01/2023 drug scree n, urine Amphetamines : negati ve Not Available [facility] [address], [place], [address], 12/01/2023 16:55:00 12/01/19 24 12/01/2023 drug scree n, urine Cannabinoids : negati ve Not Available [facility] [address], [place], [address], 12/01/2023 16:55:00 12/01/19 24 12/01/2023 drug scree n, urine Cocaine: negati ve Not Available [facility] [address], [place], [address], 12/01/2023 16:55:00 12/01/19 24 12/01/2023 drug scree n, urine Opiates: negati ve Not Available [facility] [address], [place], [address], 12/01/2023 16:55:00 12/01/19 24 12/01/2023 drug scree n, urine Phenocyclidi ne: negati ve Not Available [facility] [address], [place], [address], 12/01/2023 16:55:00 12/01/19 24 12/01/2023 drug scree n, urine Barbiturates : negati ve Not Available [facility] [address], [place], [address], 12/01/2023 16:55:00 12/01/19 24 12/01/2023 drug scree n, urine Benzodiazepi angelo: negati ve Not Available [facility] [address], [place], [address], 12/01/2023 16:55:00 12/01/19 24 12/01/2023 drug scree n, urine Ethanol: negati ve Not Available [facility] [address], [place], [address], 12/01/2023 16:55:00 12/01/19 24 12/01/2023 drug scree n, urine Hallucinogen s: negati ve Not Available [facility] [address], [place], [address], 12/01/2023 16:55:00 12/01/19 24 12/01/2023 drug scree n, urine Inhalants: negati ve Not Available [facility] [address], [place], [address], 12/01/2023 16:55:00 12/01/19 24 12/01/2023 drug scree n, urine Anabolic Steroids: negati ve Not Available [facility] [address], [place], [address], 12/01/2023 16:55:00 11/17/19 24 11/17/2023 US, obste tric, nucha l trans lucen cy No observ ation record ed. [email or web address] [facility] [address], [place], [address], 11/17/2023 17:09:38 11/17/19 24 11/17/2023 US, obste tric, nucha l trans lucen cy No observ ation record ed. [email or web address] [facility] [address] [address], [place], [address], 11/17/2023 21:46:15 11/30/19 24 11/30/2023 US, obste tric, follo w-up No observ ation record ed. [address] [address] [place] [address], [place], [address], 12/03/2023 12:03:37 12/29/19 24 12/29/2023 US, obste tric, follo w-up No observ ation record ed. [address] [address] [place] [address], [place], [address], 12/31/2023 12:30:29 Result Notes None recorded. Problems Name Problem SNOMED Code Status Onset Date Resolution Date Notes Provider Name and Address Organization Details Recorded Time Pre-eclam psia 446160020 [facility] 10:03:32 Deliverie s by 732007335 Active to repeat [facility] 4 10:03:32 Asthma 323194257 Active got worse in previous nIo Álvarez [facility] 4 10:03:32 Neuropath y 734255196 [facility] 4 10:03:32 Female steriliza tion Active [facility] 4 10:03:32 Mixed anxiety and depressiv e disorder 705997843 [facility] 4 10:03:32 High risk care Active 2012 Supervisio n of unspecifie d high-risk ; Recorded Elsewhere: No Locatio n: [facility] rce: EHR Chroni c: N Practice ID: [id number] Billa ble Time: 02:00:00 PM Not Available [facility] 0 21:56:48 Type 1 diabetes mellitus 81548641 Active 2013 Diabetes Mellitus, Juvenile, Controlled ;Recorded Elsewhere: No Locatio n: [facility] rce: EHR Chroni c: N Practice ID: [id number] Billa ble Time: 11:30:00 AM Ino Álvarez [facility] 4 10:03:32 Type 1 diabetes mellitus 97839245 Active 2013 Diabetes Mellitus, Juvenile, Controlled ;Recorded Elsewhere: No Locatio n: [facility] rce: EHR Chroni c: N Practice ID: [id number] Billa ble Time: 11:30:00 AM Ino Álvarez [facility] 4 10:03:32 Diabetes mellitus during - baby delivered 668341148 Active 2013 Diabetes mellitus of mother, with delivery;P ractice ID: 0001 Not Available [facility] 0 21:56:49 Obesity 662158277 Active 2013 Obesity, unspecifie d;Practice ID: 0001 Not Available [facility] 0 21:56:47 Problem Notes None recorded. Procedures Surgical History Date Name Laterality Status Provider Name and Address Organization Details Recorded Time 04/07/20 23 Date of Last Pap Smear completed [facility] 11/17/2023 16:56:47 12/06/19 18 Orthopedic Surgery completed [facility] 12/01/2023 16:14:39 10/06/19 14 cholecystectomy completed [facility] 12/01/2023 15:37:11 07/28/19 14 section completed [facility] 11/17/2023 17:05:42 Imaging Results None recorded. Procedure Notes None recorded. Medical Equipment None Reported. Allergies Allergen ID Allergen Name Allergen Category Reaction Reaction Severity Criticality Documentation Date Start Date Code Code System Note Provider Name and Address Organization Details Recorded Time 29567 cyclobenz aprine hydrochlo ride medicatio n Not available Not available Not available 11/17/[address] [facility] 4 16:54:23 Medications Name Sig Start Date Stop Date Status Note LastModified by Organization Details LastModified Time amoxicill in 500 mg capsule TAKE 1 CAPSULE BY MOUTH THREE TIMES DAILY FOR 10 DAYS 11/16 completed Not Available Not Available Not Available Mirena 21 mcg/24 hr (up to 8 years) 52 mg intrauter ine device insert 1 kit by vaginal route every 1 for 5 months 02/09 completed Prescrib ed Elsewher e: No Locat ion: [facility]ita [facility] odify By: margaret stevens DateTime : 09/14/19 19 11:19:30 AM Not Available Not Available Not Available atorvasta tin 20 mg tablet TAKE 1 TABLET BY MOUTH EVERY DAY IN THE EVENING 11/30 completed Not Available Not Available Not Available hydrocodo ne 5 mg-acetam inophen 325 mg tablet TAKE 1 TABLET BY MOUTH EVERY 6 HOURS NEEDED FOR PAIN 11/16 completed Not Available Not Available Not Available sertralin e 100 mg tablet 11/30 completed Not Available Not Available Not Available ondansetr on 8 mg disintegr ating tablet 11/30 completed Not Available Not Available Not Available Metrogel Vaginal 0.75 % (37.5 mg/5 gram) insert 1 applicat orful by vaginal route every day at bedtime for 5 nights 11/16 completed Prescrib ed Elsewher e: No Locat ion: [facility] odify By: sherron browning DateTime : 04/24/20 16 09:19:11 AM Not Available Not Available Not Available Tylenol 325 mg tablet take 1 tablet by oral route every 4 hours as needed 08/04 completed Prescrib ed Elsewher e: Yes Loca tion: [facility] odify By: tereso stevens DateTime : 03/02/20 13 02:00:00 PM Not Available Not Available Not Available methylpre dnisolone 4 mg tablets in a dose pack FOLLOW PACKAGE DIRECTIO NS 11/30 completed Not Available Not Available Not Available labetalol 100 mg tablet take 1 tablet (100MG) by oral route 2 times every day 09/11 completed Prescrib ed Elsewher e: No Locat ion: [facility] odify By: carlee stevens DateTime : 07/25/19 14 12:00:00 PM Not Available Not Available Not Available albuterol sulfate HFA 90 mcg/actua tion aerosol inhaler INHALE 2 PUFFS BY MOUTH EVERY 4 HOURS NEEDED active Not Available Not Available No t Available fluticaso ne propionat e 50 mcg/actua tion nasal spray,janelle pension SHAKE LIQUID AND USE 1 SPRAY IN EACH NOSTRIL TWICE DAILY active Not Available Not Available No t Available amoxicill in 875 mg-potass ium clavulana te 125 mg tablet TAKE 1 TABLET BY MOUTH EVERY 12 HOURS FOR 7 DAYS 11/16 completed Not Available Not Available Not Available ciproflox acin 0.3 %-dexamet hasone 0.1 % ear drops,janelle pension SHAKE LIQUID AND INSTILL 4 DROPS TO LEFT EAR EVERY 12 HOURS FOR 7 DAYS 11/16 completed Not Available Not Available Not Available nitrofura ntoin monohydra te/macroc rystals 100 mg capsule TAKE 1 CAPSULE BY MOUTH EVERY 12 HOURS FOR 7 DAYS 11/16 completed Not Available Not Available Not Available duloxetin e 30 mg capsule,d elayed release TAKE 1 CAPSULE BY MOUTH TWICE DAILY DIRECTED active Not Available Not Available No t Available pregabali n 150 mg capsule TAKE 1 CAPSULE BY MOUTH TWICE DAILY active Not Available Not Available No t Available Apidra U-100 Insulin 100 unit/mL subcutane ous solution inject by subcutan eous route as per insulin sliding scale protocol 11/30 completed Prescrib ed Elsewher e: Yes Loca tion: [facility] odify By: sharan gonzalez DateTime : 03/02/20 13 02:00:00 PM Not Available Not Available Not Available Lantus Solostar U-100 Insulin 100 unit/mL (3 mL) subcutane ous pen ADMINIST ER 22 UNITS UNDER THE SKIN EVERY 12 HOURS active Not Available Not Available No t Available Humalog KwikPen (U-100) Insulin 100 unit/mL subcutane ous active Not Available Not Available Not Available Zyrtec 10 mg capsule 08/04 completed Prescrib ed Elsewher e: Yes Loca tion: [facility] odify By: tereso stevens DateTime : 03/02/20 13 02:00:00 PM Not Available Not Available Not Available Triveen-D uo DHA 29 mg-1 mg-400 mg oral pack take 2 by Oral route every day for 30 days 07/07 completed Prescrib ed Elsewher e: No Locat ion: [facility] odify By: harry browning DateTime : 06/08/19 14 01:00:00 PM Not Available Not Available Not Available 28 mg iron-800 mcg tablet TAKE 1 TABLET BY MOUTH DAILY active Not Available Not Available No t Available BD Jenna 2nd Gen Pen Needle 32 gauge x 5/32 USE 1 EACH FOUR TIMES DAILY 11/30 completed Not Available Not Available Not Available Gvoke HypoPen 2-Pack 1 mg/0.2 mL subcutane ous auto-inje ctor INJECT 1 DOSE UNDER THE SKIN NEEDED 11/30 completed Not Available Not Available Not Available Vitals Date Recorded Body weight Body mass index (BMI) Body height Systolic And Diastolic Provider Name and Address Organization Details Last Updated DateTime 11/17/2023 304837.05 g 46.9 kg/m2 165.1 cm 138/84 mm[Hg] Marilyn Day [facility] 11/17/2023 16:52:02 Date Recorded Body height Body mass index (BMI) Body weight Systolic And Diastolic Provider Name and Address Organization Details Last Updated DateTime 12/01/2023 165.1 cm 46.9 kg/m2 461851.04 834 g 124/82 mm[Hg] Nicci Latham [facility] 12/01/2023 16:11:50 Social History Question Answer Notes LastModified by Organizat ion Details LastModified Time Tobacco Smoking Status Former Smoker Marilyn Day null, [facility] 11/17/2023 16:59:15 Are You Blind Or Do You Have Difficulty Seeing? No [email or web address] Information n ot available 11/17/2023 In The 14 Days Before Symptom Onset, Have You Had Close Contact With A Laboratory-confirm ed COVID-19 While That Case Was Ill? No [email or web address] Information n ot available 11/17/2023 In The 14 Days Before Symptom Onset, Have You Had Close Contact With A Person Who Is Under Investigation For COVID-19 While That Person Was Ill? No [email or web address] Information not available 11/17/2023 Have You Been To An Area Known To Be High Risk For COVID-19? No [email or web address] Information not available 11/17/2023 Are You Deaf Or Do You Have Serious Difficulty Hearing? No [email or web address] Information not available 11/17/2023 Do You Use Your Seat Belt Or Car Seat Routinely? Yes [email or web address] Information not available 11/17/2023 Do You Have Smoke And Carbon Monoxide Detectors In Your Home? Yes [email or web address] Information not available 11/17/2023 Do You Use Sunscreen Routinely? Yes [email or web address] Information not available 11/17/2023 Do You Have Difficulty Walking Or Climbing Stairs? No [email or web address] Information not available 11/17/2023 Sex: Unknown Functional Status Question Answer Note LastModified by Organization D etails LastModified Time Are you able to care for yourself independently? Yes Information not available 11/17/2023 Do you have difficulty dressing, bathing, grooming, or toileting? No [email or web address] Information not available 11/17/2023 Mental Status None recorded. Family History Relationship Description Onset Age of this Age Resolved Age Notes LastModified by Organization Details LastModified Time Mother Asthma [email or web address] Not available 11/17/2023 17:02:45 Mother Cyst of ovary Not available 2023 17:04:23 Mother Hypertensive disorder [email or web address] Not available 2023 17:05:03 Father Asthma [email or web address] Not available 11/17/2023 17:02:54 Father Blood coagulation disorder [email or web address] Not available 2023 17:03:49 Father Hypertensive disorder Not available 2023 17:05:03 Paternal Grandmother Malignant neoplasm of breast [email or web address] Not available 2023 17:03:12 Paternal Grandmother Malignant neoplasm of ovary [email or web address] Not available 2023 17:04:41 Paternal Grandfather Malignant neoplasm of breast [email or web address] Not available 2023 17:03:22 Maternal Grandfather Heart disease [email or web address] Not available 2023 17:04:03 Maternal Grandmother Malignant neoplasm of ovary [email or web address] Not available 2023 17:04:41 Notes:Father: Asthma Materna l aunt: pulmonary embolism Maternal grandfather: Hypertension Maternal grandmother: Cancer, breast, Diabetes mellitus, ovarian cyst Paternal aunt: Diabetes mellitus, Cancer, breast Paternal grandmother: Cancer, breast Paternal uncle: Asthma Sister: Asthma, psychiatric disease Medical History Condition Response Allergies (Food, seasonal, environmental ) N Other N Drug/Latex Allergies/Reactions N Breast Cancer N Blood Transfusion N Lung Disease N Dermatologic Disorders N Defects or Inherited Disease N Breast Problem N Gestational Diabetes N Hematologic disorders N Anesthesia Complications N History of STI N Deep Vein Thrombosis N Polycystic ovary syndrome N Anxiety Disorder Y Autoimmune disease N Arthritis N Polyps N Infertility N History of abnormal pap N Acid Reflux (GERD) N Cancer N Varicosities N Stroke N Neurologic/Epilepsy N Endometriosis N High Cholesterol N Headaches N Fibromyalgia N Kidney Disease N Heart Problems N Thyroid Problems N Kidney or Bladder Problems N GI Problems N Eating Disorder N Anemia N Art (IVF or FET) N Psychiatric Illness N Ovarian Cancer N Diabetes Y Pulmonary (TB, Asthma) N Hepatitis/Liver Disease N No Past Medical History N Eczema N Urinary Tract Infection N Abuse/Domestic Violence N Asthma Y Trauma/Violence N Depression/ depression Y Heart Disease N Pre-Eclampsia N Hypertension N Osteoporosis N Thrombophilias N Gynecological History Statement/Question Response Date of LMP 08/09/2023 On BCP's at Conception? N Was last menstrual period normal Y STIs/STDs N HPV Vaccine N Duration of Flow (days) 5 Current Control Method Are cycles usually normal Y Frequency of Cycle (Q days) 28 Sexually Active? Y Menses Monthly Y Age of first menstrual cycle 13 Date of Last Pap Smear 04/07/2023 Sexual Problems? N LMP Approximate Obstetrics History GPAL:G 4 P 1 0 1 1 Type Value Full Term 1 Spontaneous 1 Living 1 Total 4 Past Encounters Encounter ID Performer Location Encounter Start Date Encounter Closed Date Diagnosis/Indication Diagnosis SNOMED-CT Code Diagnosis ICD10 Code Diagnosis IMO Codes Diagnosis Note [id number] Michael Emmanuel MD [facility] [address] [address] 11/17/2023 15:31:37 11/17/2023 16:46:41 screening 618497522 Z36.82 O99.210 Z3A.13 [id number] Michael Emmanuel MD [facility] [address] [address] 11/17/2023 15:33:04 11/18/2023 10:58:39 Amenorrhea 01300169 N91.2 this patient is a 33-year-ol d female who presents for amenorrhea . She is a positive test. Ultrasound revealed a 1st trimester gestation. Patient has no complaints . We talked about early care. Talked about genetic screening. We talked about her ultrasound results. We talked about the 12 week ultrasound that has genetic screening components . She was given recommenda tions on exercise, diet, over-the-c ounter medication s. We reviewed her obstetric history. We reviewed her medical history. We reviewed her social history. She will begin routine care at her next visit. type 1 diabetic with poor control in the 1st trimester, using gabapentin and duloxetine in 1st trimester. Needs MFM consult. [id number] Michael Emmanuel MD [facility] [address] [address] 12/01/2023 16:05:07 12/01/2023 17:01:47 Routine care 203922459 Z34.91 Health Concerns Section Related Observation LastModified by Organization Detai ls LastModified Time None Recorded Concern Status LastModified by Organization Details LastModified Time None Recorded Advance Directives Directive None Recorded Payers Insurance Date Sequence Insurance Name Policy Number Policy Hopson Covered Member ID Hopson Member ID Guarantor Name 12/06/2023 1 *SELF PAY* Anoop Yepez 12/06/2023 2 [facility] (MEDICARE REPLACEMENT/A DVANTAGE - PPO) [id number] Sadie Yepez [id number] Sadie Yepez Notes Date Note Type Note Provider Name and Address Organization Details Recorded Time 11/17/2023 text/html this patient is a 33-year-old female who presents for amenorrhea. She is a positive test. Ultrasound revealed a 1st trimester gestation. Patient has no complaints. We talked about early care. Talked about genetic screening. We talked about her ultrasound results. We talked about the 12 week ultrasound that has genetic screening components. She was given recommendations on exercise, diet, [id number] medications. We reviewed her obstetric history. We reviewed her medical history. We reviewed her social history. She will begin routine care at her next visit. type 1 diabetic with poor control in the 1st trimester, using gabapentin and duloxetine in 1st trimester. Needs MFM consult. Michael Emmanuel MD [address], [place], [address], [facility] 11/17/2023 22:44:59 12/01/2023 text/html this patient is a 33-year-old multiparous female at 16 weeks' gestation who presents for initial care. She has a history of term vaginal births. Her medical, surgical, obstetric history is unremarkable. She is vaccinated. She was given precautions recommendations for . We talked about vaccines in . Talked about care in detail. She is having genetic testing. She had a normal 12 week ultrasound. To begin routine care. complicated by type 1 diabetes, history of preeclampsia, history , anxiety and depression. Has seen Maternal- Medicine already to start working on her type 1 diabetes and screen for anatomy issues. She has been poorly controlled up to recently. She has some peripheral neuropathy. To repeat . To continue treatment for anxiety depression. Michael Emmanuel MD [address], [place], [address], [facility] 12/01/2023 16:57:30 OBGyn Episode Ob Episode Information Episode Created Date Number of Fetuses Patient Bloodtype Patient rh Status Prepregnancy Weight lbs Domestic Partner Domestic Partner Phone Father Name Flight Operations Specialist Status 12/01/19 24 1 Negative 282 Karl Barajas OPEN Fetus Data First Name Last Name Admitted to NICU Weight (g) Sex Living Outcome Pediatric Complications Fetus ID Race Codes Race Delivery Type [id number] Problems Problem Notes next appt 12/28 11:15a u/s on ly, 01/24 9:30am procedure, office visit, and visitRecs: 4 week anatomy ultrasound, retinal exam at local eye doctor, declined referral will go to her local provider, request op report adn dc summary from first delivery, referral to Dr. Dawson for psych, CMP/24hr urine/pn labs/hb electrophoresis/cf screen/nipt/c-peptide/fasting glucose/CAROLYN antibodies/tsh/plus other labs from psych. ASA 162mg daily, email glucose levels , insulin adjusted. Problem Name Start Date End Date Resolution Snomed Code Not e Pre-eclampsia [id number] Deliveries by [id number] to repeat Asthma 382696000 got worse in previous Neuropathy 815359862 pregabali n Female sterilization [id number] tubal at the time of Mixed anxiety and depressive disorder [id number] duloxeti ne Type 1 diabetes mellitus 06/21/2013 [id number] Diabetes Rob us, Juvenile, Controlled;Recorded Elsewhere: No Location: [facility] [place] Source: EHR Chronic: N Practice ID: [id number] Billable Time: 11:30:00 AM Dhaval Calculation Initial Dhaval Date Initial Exam Date Initial Exam Provider Initial Ultrasound Date Last Menstrual Period Date Ultra Sound Weeks Gestation 05/15/2024 12/01/2023 11/17/2023 08/09/2023 0 Eighteen To Twenty Week Dhaval Update Ultra Sound Date Fundal Height At Umbil Quickening Date Ultra Sound Latest Weeks Gestation Final Dhaval Confirmed By Final Dhaval Confirmed Date Final Dhaval Date Ultra Sound Latest Days Gestation 0 05/15/20 24 0 Pre- Flowsheet Flowsheet Date 12/01/2023 Barlow Score Blood Edema Fundus Height Fundus Units Glucose Ketones Leukocytes Nitrite Labor Signs Protein Cervic Dilation Cervic Effacement Cervic Station neg none Type Weight in lbs Pre/Post Dialysis Refused Weight [id number] BP Diastolic BP Location Tested BP Systolic BP Type 82 L arm 124 sitting Fetus Heart Rate Present A 154 Fetus Movement A No Comments this patient is a 33-year-ol d multiparous female at 16 weeks' gestation who presents for initial care. She has a history of term vaginal births. Her medical, surgical, obstetric history is unremarkable. She is vaccinated. She was given precautions recommendations for . We talked about vaccines in . Talked about care in detail. She is having genetic testing. She had a normal 12 week ultrasound. To begin routine care. complicated by type 1 diabetes, history of preeclampsia, history , anxiety and depression. Has seen Maternal- Medicine already to start working on her type 1 diabetes and screen for anatomy issues. She has been poorly controlled up to recently. She has some peripheral neuropathy. To repeat . To continue treatment for anxiety depression. Menstrual History Last Menstrual Date Menses Monthly On Bcp Conception Prior Menses Frequency Hcg Plus Date Menarche Onset Age 0308/09/2023 true 4 11 Genetic Screening And Infection History Question Response Note Mental Retardation/Autism false Patient's Age Will Be 35 Years Or Older At Estim ated Date of Delivery false Thalassemia (Pashto, Romanian, Mediterranean, Or Background): MCV < 80 false Neural Tube Defect (Meningomyelocele, Spina Bifi da, Or Anencephaly) false Congenital Heart Defect false Down Syndrome false Shad-Sachs (eg, Yarsanism, Cajun, Indonesian-Tichnor) f alse Murray Disease false Sickle Cell Disease Or Trait () false Hemophilia Or Other Blood Disorders false Muscular Dystrophy false Cystic Fibrosis false [place] false Intellectual Disability/Autism false If Yes, Was Person Tested For Fragile X? false Other Inherited Genetic Or Chromosomal Disorder false Maternal Metabolic Disorder (eg, Type 1 Diabetes , PKU) false Patient Or Baby's Father Had A Child With Defects Not Listed Above false Recurrent Loss, Or A Stillbirth false Medications (including Suppl ements, Vitamins, Herbs, OTC Drugs), Illicit/Recreational Drugs, Alcohol false If Yes, Agent(s) And Strength/Dosage false Any Other Genetic History false Live With Someone With TB Or Exposed To TB false Patient Or Partner Has History Of Genital Herpes false Rash Or Viral Illness Since Last Menstrual Perio d false History Of STD, Gonorrhea, Chlamydia, HPV, Syphi lis false Other Infection History false History of HIV false History of Hepatitis false Prior GBS-infected child false Hemoglobinopathy Or Carrier false Other Structural Defect false Recent Travel History Outside of Country false Delivery Information Delivery Date Delivery Type Labor Anesthesia Weeks Gestation Incision Type Labor Labor Length Hrs Delivered By Post Complications Tubal Sterilization Discharge Date Comments Discharge Information Feeding Method Contraceptive Method Maternal HG B and HCT Levels Ob Episode Information Episode Created Date Number of Fetuses Patient Bloodtype Patient rh Status Prepregnancy Weight lbs Domestic Partner Domestic Partner Phone Father Name Flight Operations Specialist Status 11/17/19 24 1 CLOSED Fetus Data First Name Last Name Admitted to NICU Weight (g) Sex Living Outcome Pediatric Complications Fetus ID Race Codes Race Delivery Type 3175.14 4 M Full Term [id number] Dhaval Calculation Initial Dhaval Date Initial Exam Date Initial Exam Provider Initial Ultrasound Date Last Menstrual Period Date Ultra Sound Weeks Gestation 0 Eighteen To Twenty Week Dhaval Update Ultra Sound Date Fundal Height At Umbil Quickening Date Ultra Sound Latest Weeks Gestation Final Dhaval Confirmed By Final Dhaval Confirmed Date Final Dhaval Date Ultra Sound Latest Days Gestation 0 0 Menstrual History Last Menstrual Date Menses Monthly On Bcp Conception Prior Menses Frequency Hcg Plus Date Menarche Onset Age Delivery Information Delivery Date Delivery Type Labor Anesthesia Weeks Gestation Incision Type Labor Labor Length Hrs Delivered By Post Complications Tubal Sterilization Discharge Date Comments 4 38 Davion gonzalez Discharge Information Feeding Method Contraceptive Method Maternal HG B and HCT Levels Ob Episode Information Episode Created Date Number of Fetuses Patient Bloodtype Patient rh Status Prepregnancy Weight lbs Domestic Partner Domestic Partner Phone Father Name Flight Operations Specialist Status 11/17/19 24 1 CLOSED Fetus Data First Name Last Name Admitted to NICU Weight (g) Sex Living Outcome Pediatric Complications Fetus ID Race Codes Race Delivery Type , Spontane ous [id number] Dhaval Calculation Initial Dhaval Date Initial Exam Date Initial Exam Provider Initial Ultrasound Date Last Menstrual Period Date Ultra Sound Weeks Gestation 0 Eighteen To Twenty Week Dhaval Update Ultra Sound Date Fundal Height At Umbil Quickening Date Ultra Sound Latest Weeks Gestation Final Dhaval Confirmed By Final Dhaval Confirmed Date Final Dhaval Date Ultra Sound Latest Days Gestation 0 0 Menstrual History Last Menstrual Date Menses Monthly On Bcp Conception Prior Menses Frequency Hcg Plus Date Menarche Onset Age Delivery Information Delivery Date Delivery Type Labor Anesthesia Weeks Gestation Incision Type Labor Labor Length Hrs Delivered By Post Complications Tubal Sterilization Discharge Date Comments 7 Discharge Information Feeding Method Contraceptive Method Maternal HG B and HCT Levels
[2025-06-01 11:10] VITALS: BP 127/75; PULSE 103; RESP 16; TEMP 36.2; O2SAT 99
--- NOTE | 2025-06-01 11:11 | ED.EAR ---
HPI - Ear Problem General Chief complaint: Ear Stated complaint: Right Ear Pain Time Seen by Provider: 06/01/25 11:18 Source: patient Mode of arrival: ambulatory Limitations: no limitations History of Present Illness HPI Narrative: Sadie is a 34-year-old female patient presenting to the clinic today with complaints of right ear pain x3 days. She reports the pain is gradually gotten worse. Has been taking Tylenol and ibuprofen for pain. States she gets frequent ear infections. No drainage coming from the ear. No recent swimming. Related Data Home Medications ?Medication ?Instructions ?Recorded ?Confirmed ?Last Taken ?Type pregabalin 150 mg capsule 150 mg PO DAILY 09/20/21 12/05/24 Unknown History duloxetine 30 mg capsule,delayed 60 mg PO 11/27/24 12/05/24 Unknown History release insulin lispro 100 unit/mL 06/01/25 Unknown History subcutaneous solution (Humalog U-100 Insulin) Allergies Allergy/AdvReac Type Severity Reaction Status Date / Time cyclobenzaprine (From Allergy Unknown Verified 06/01/25 11:12 Flexeril) Review of Systems Review of Systems: Pertinent positives per HPI. Patient denies any fever, chills, rash, headache, visual changes, dizziness, cough, shortness of breath, chest pain, palpitations, nausea, vomiting, diarrhea, constipation, abdominal pain, or any urinary issues. [facility] Past Medical History Medical History (Updated 06/01/25 @ 11:19 by Estevan Davidson APRN) Depression Diabetes Asthma Anxiety Allergies Surgical History Surgical History History of placement of ear tubes History of cholecystectomy History of delivery x 2 Family History Family History Grandparent Breast cancer Ovarian cancer Depression Heart disease Hypertension Cerebrovascular accident Mother Cerebrovascular accident Heart disease Hypertension Asthma Father Heart disease Hypertension Asthma Depression Social History Social History (Updated 12/05/24 @ 10:40 by Rosie Mckinley CMA) Smoking status: Never smoker Alcohol intake: never Substance use: never Substance use type: does not use Lack of Transportation: No Lack of Food: Never True Current Housing: I Have Housing Concerned About Future Housing: No Difficulty Paying Gas/Electric Bills: No Difficulty Paying for Meds: No Currently Unemployed: No Education: High School Diploma/GED Living arrangements: with family Additional living arrangements comments: single Occupation/Education: unemployed Additional occupation/education comments: disable Gender identity (if verbalized by the patient): Female Sexual Orientation (if Verbalized by the Patient): Bisexual Comments At the time of my signature, I reviewed and agree with the nursing past medical, surgical, social, and family history. There is no relevant family history pertinent to the patient complaint. Exam Narrative: General: Well-developed, morbidly obese, in no apparent distress Head: Normocephalic, atraumatic Eyes: Pupils equally round and reactive to light bilaterally, EOM intact, sclera and conjunctive clear, no discharge, lids normal Ears: TMs intact and clear, mild tenderness to palpation over the right tragus, no pain with pulling of the right pinna, tenderness to palpation over the right eustachian tube, ear canals clear, no drainage, grossly hearing normal. Nose: Nares patent, no discharge, no inflammation, no sinus tenderness. Mouth: Oral pharynx without lesions or masses, good dentition, MMM. Neck: Supple, trachea midline, no enlargement of anterior or posterior cervical nodes, no thyroid masses or goiter palpable. Cardio: Regular rate and rhythm, s1 and s2 normal, no murmur appreciated. Resp: Clear to auscultation bilaterally, no rhonchi, rales, wheezing or rubs Course Course Level of Care: Express Care Visit Vital Signs Vital signs: Vital Signs Temperature 36.2 C L 06/01/25 11:10 Pulse Rate 103 H 06/01/25 11:10 Respiratory Rate 16 06/01/25 11:10 Blood Pressure 127/75 06/01/25 11:10 Pulse Oximetry 99 06/01/25 11:10 Oxygen Delivery Room Air 06/01/25 11:10 Temperature 36.2 C L 06/01/25 11:10 Pulse Rate 103 H 06/01/25 11:10 Respiratory Rate 16 06/01/25 11:10 Blood Pressure 127/75 06/01/25 11:10 Pulse Oximetry 99 06/01/25 11:10 Oxygen Delivery Room Air 06/01/25 11:10 [facility] Narrative Medical decision making narrative: At the time of visit patient is resting comfortably on the exam table. Patient appears to be nontoxic. Complaints of right ear pain x3 days. She reports the pain is gradually gotten worse. Has been taking Tylenol and ibuprofen for pain. States she gets frequent ear infections. No drainage coming from the ear. No recent swimming. On exam patient has bilateral TMs intact and clear, a mild tenderness to palpation over the tragus but no tenderness to pulling of the pinna, tenderness to palpation over eustachian tube on the right, no nasal drainage, lung sounds are clear, heart rates regular rate and rhythm. Plan: I suspect patient has eustachian tube dysfunction. Recommend Flonase and [id number] antihistamine such as Zyrtec. Follow-up with PCP/ENT as needed. Supportive measures were discussed with the patient and they voiced understanding discharge instructions and agrees to treatment plan. Return precautions reviewed Differential Diagnosis Differential Diagnosis: Otitis media, otitis externa, eustachian tube dysfunction, cerumen impaction, upper respiratory infection, serous otitis Discharge Plan Discharge Clinical Impression: Acute dysfunction of right eustachian tube Patient Disposition: Home Condition: Stable Instructions: Antibiotic Form, Earache (ED) Additional Instructions: Take any prescribed medications only as directed May use [id number] Flonase and Zyrtec daily as discussed Tylenol/motrin as needed for pain May use heating pad to alleviate pain If you get recurrent ear infections it may be warranted to follow up with ENT. Follow up with your PCP in 3-5 days if symptoms persist. Patient Language: Angolan Prescriptions: No Action pregabalin 150 mg capsule 150 mg PO DAILY duloxetine 30 mg capsule,delayed release(DR/EC) 60 mg PO insulin lispro [Humalog U-100 Insulin] 100 unit/mL solution norethindrone (contraceptive) 0.35 mg tablet 0.35 mg PO DAILY Qty: 84 3RF Follow-up/Referrals: Devon,Kalyn Crowell APN [Primary Care Provider, Unknown] Time of Disposition: 11:19 Quality NIHSS Nursing Documentation ED NIHSS nursing documentation: reviewed/agree
== END 2025-06-01 11:23 | disposition home or self-care (01) ==
PROVIDERS: Emergency Provider Nurse Practitioner Family; PCP Nurse Practitioner Family
DX: H69.81 Other specified disorders of Eustachian tube, right ear (principal); E11.9 Type 2 diabetes mellitus without complications
CPT/HCPCS: 99211; G0463